=== PATIENT | female | born 1990 | race Caucasian/White ===

== ENCOUNTER 2016-09-26 15:19 | Emergency (ER) | payer MEDICAID ==
[~2016-09-26] VITALS: Ht 160 cm; Wt 57.6 kg
[~2016-09-26 15:19] MED LIST: BPR150TCR; CPR500T PO; HYDR-3062 PO; IBP600T1 PO; IBP800T PO; METR500T PO; NAPR-243 PO; PRD50T PO; PREN1TAB71 PO; RABE20TA PO; TRM50T PO; ZICAM
[2016-09-26 16:18] LABS: BILIRUBIN,URINE NEGATIVE (NEGATIVE); KETONES,URINE NEGATIVE (NEGATIVE); LEUKOCYTE ESTERASE ,URINE NEGATIVE (NEGATIVE); NITRITE,URINE NEGATIVE (NEGATIVE); PH,URINE 6 (5-9); PROTEIN,URINE NEGATIVE (NEGATIVE); UROBILINOGEN,URINE NORMAL (NORMAL)
[2016-09-26 16:26] LABS: WBC,URINE RARE /HPF
[2016-09-26 17:01] LABS: BASOPHILS % (AUTO) 1 % (0-10); EOSINOPHILS # (AUTO) 0.1 10^3/uL (0.0-0.3); EOSINOPHILS % (AUTO) 2 % (0-10); LYMPHOCYTES # (AUTO) 1.6 X 10^3 (1.0-4.0); LYMPHOCYTES % (AUTO) 30 % (12-44); MEAN CORPUSCULAR HEMOGLOBIN 31 PG (25-34); MEAN CORPUSCULAR HGB CONC 34 G/DL (32-36); MEAN CORPUSCULAR VOLUME 92 FL (80-99); MEAN PLATELET VOLUME 10.7 FL (7.4-10.4); MONOCYTES # (AUTO) 0.4 X 10^3 (0.0-1.0); MONOCYTES % (AUTO) 7 % (0-12); NEUTROPHILS # (AUTO) 3.3 X 10^3 (1.8-7.8); NEUTROPHILS % (AUTO) 61 % (42-75); PLATELET COUNT 159 10^3/uL (130-400); RED BLOOD COUNT 4.49 10^6/uL (4.35-5.85); RED CELL DISTRIBUTION WIDTH 11.9 % (10.0-14.5); WHITE BLOOD COUNT 5.3 10^3/uL (4.3-11.0)
[2016-09-26 17:13] LABS: ALANINE AMINOTRANSFERASE 15 U/L (0-55); ALBUMIN 4.2 G/DL (3.2-4.5); ANION GAP 8 MMOL/L (5-14); ASPARTATE AMINO TRANSFERASE 15 U/L (5-34); BILIRUBIN,TOTAL 0.4 MG/DL (0.1-1.0); BLOOD UREA NITROGEN 12 MG/DL (7-18); BUN/CREATININE RATIO 15; CALCIUM 9.6 MG/DL (8.5-10.1); CARBON DIOXIDE 26 MMOL/L (21-32); CHLORIDE 102 MMOL/L (98-107); GFR ESTIMATED > 60; GLUCOSE 70 MG/DL (70-105); MAGNESIUM 1.8 MG/DL (1.8-2.4); POTASSIUM 4.1 MMOL/L (3.6-5.0); SODIUM 136 MMOL/L (135-145); TOTAL PROTEIN 7.5 G/DL (6.4-8.2)
--- NOTE | 2016-09-26 17:22 | Diagnostic Imaging Report ---
INDICATION: Right-sided abdominal pain radiating to the back. Last bowel movement one week prior.. TECHNIQUE: Single supine view of the abdomen 05:21 p.m. CORRELATION STUDY: None. FINDINGS: There is vsya-ec-llpbbqsn severity fecal retention. No evidence for large fecal impaction. No findings to suggest bowel obstruction on single supine projection. No pathologic intra-abdominal calcifications. Incidental note made of a spina bifida occulta defect at the S1 level. IMPRESSION: 1. Vudb-fy-elyajfjj severity fecal retention. Dictated by: Dictated on workstation # [id number]
--- NOTE | 2016-09-26 17:28 | ED Abdominal Pain ---
General Chief Complaint: Abdominal/GI Problems Stated Complaint: ABD PAIN, CONSTIPATION Nursing Triage Note: PT STATES SHE HAS CONSTIPATION. SHE HAS HAD CONSTIPATION FOR APPROX. A WEEK. PT STATES HER BELLY IS TIGHT AND "FULL" FEELING. Sepsis Screen: No Definite Risk Source of Information: Patient Exam Limitations: No Limitations History of Present Illness Time Seen By Provider: 16:09 Initial Comments This 26-year-old woman presents to the emergency room with complaints of constipation and abdominal discomfort that has progressively worsened for a few weeks. Her last BM was about 6 days ago. She does have chronic intermittent problems with constipation but this is her most severe episode. She started MiraLAX 3 days ago and has been taking one or 2 doses a day. She also takes a "natural digestion" pill she purchases from [employer]. Normally this is effective in treating her constipation but has not worked this time. She has also tried suppositories in recent days without benefit. She reports a change in diet recently. She has been less disciplined about avoiding dairy products and fast food. She has some mild abdominal tenderness and cramping. She feels bloated. Last menstrual period was September 13 and was reportedly not her usual flow. She takes oral control as well. She has already been seen at [facility] for the same problem. She was started on antibiotics yesterday for urinary tract infection. Allergies and Home Medications Allergies Coded Allergies: No Known Drug Allergies (Verified , 02/03/09) Home Medications Rabeprazole Sodium 20 Mg Tablet.dr, 20 MG PO DAILY, #30 Prescribed by: AUREA WEINBERG on 10/12/13 0226 Review of Systems Constitutional: no symptoms reported EENTM: No Symptoms Reported Respiratory: No Symptoms Reported Cardiovascular: No Symptoms Reported Gastrointestinal: See HPI Genitourinary: See HPI Musculoskeletal: no symptoms reported Skin: no symptoms reported Psychiatric/Neurological: No Symptoms Reported Endocrine: No Symptoms Reported Past Nrhsxxb-Uurcxb-Veyiyb Hx Patient Social History Alcohol Use: Occasionally Uses Recreational Drug Use: No Smoking Status: Current Everyday Smoker Type Used: Cigarettes 2nd Hand Smoke Exposure: Yes Recent Foreign Travel: No Contact w/Someone Who Travel: No Recent Infectious Disease Expo: No Recent Hopitalizations: No Immunizations Up To Date Tetanus Booster (TDap): More than 5yrs PED Vaccines UTD: No Seasonal Allergies Seasonal Allergies: No Surgeries HX Surgeries: No Respiratory Hx Respiratory Disorders: No Cardiovascular Hx Cardiac Disorders: No Neurological Hx Neurological Disorders: No Reproductive System Hx Reproductive Disorders: No Sexually Transmitted Disease: No Genitourinary Hx Genitourinary Disorders: No Gastrointestinal Hx Gastrointestinal Disorders: Yes (gerd related.) Gastrointestinal Disorders: Gastroesophageal Reflux, Chronic Constipation Musculoskeletal Hx Musculoskeletal Disorders: No Endocrine Hx Endocrine Disorders: No HEENT HX ENT Disorders: No Cancer Hx Cancer: No Psychosocial Hx Psychiatric Problems: Yes Behavioral Health Disorders: Anxiety Integumentary HX Skin/Integumentary Disorder: No Blood Transfusions Hx Blood Disorders: No Family Medical History Significant Family History: Heart Disease, Cancer Family Medial History: Alcoholism 19 FATHER (paternal) Cancer 19 FATHER (breast cancer paternal grandmother) 19 MOTHER (maternal grandmother lung) Congestive heart failure 19 MOTHER (maternal grandomother) Family history: Cardiovascular disease 19 MOTHER (maternal grandfather) Family history: Diabetes mellitus 19 MOTHER (great grandfather type 2) Family history: Osteoporosis 19 MOTHER (grandmother ) Family history: Thyroid disorder 19 MOTHER (mother) Hearing loss 19 MOTHER (grandmother) History of - anemia 19 MOTHER (maternal grandmother) History of drug abuse 19 FATHER (dad ) Hypercholesterolemia 19 MOTHER (grandfather) Myocardial infarction 19 MOTHER (grandfather) Psychotic disorder 19 FATHER (father) Stroke 19 FATHER (great grandmother??) No Family History of: Abdominal aortic aneurysm Berrien's disease Aphasia Cancer of colon Cataract Chest pain Congenital heart disease Cystic fibrosis Dementia Dysphagia Family history: Allergy Family history: Alzheimer's disease Family history: Arthritis Family history: Asthma Family history: Breast disease Family history: Coronary thrombosis Family history: Gastrointestinal disease Family history: Glaucoma Family history: Hypertension Headache Heart disease Hereditary disease History of - disorder History of - respiratory disease Human immunodeficiency virus (HIV) seropositivity Infertile Kidney disease Malignant neoplasm of lung Parkinson's disease Prostate cancer Seizure disorder Tuberculosis Visual impairment Physical Exam Vital Signs VS - Last 72 Hours, by Label 09/26/16 09/26/16 15:26 17:45 Temp 99.2 99.2 Pulse 89 89 Resp 18 18 B/P (MAP) 105/71 Pulse Ox 99 99 O2 Delivery Room Air Capillary Refill : Less Than 3 Seconds General Appearance: WD/WN, no apparent distress HEENT: normal ENT inspection Respiratory: lungs clear, normal breath sounds, no respiratory distress, no accessory muscle use Cardiovascular: regular rate, rhythm, no edema, no murmur Gastrointestinal: normal bowel sounds, soft, distended (Mild), tenderness ( Minimal and generalized) Extremities: normal inspection, no pedal edema Back: normal inspection, no CVA tenderness 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, no motor/sensory deficits, alert, normal mood/affect, oriented x 3 Skin: normal color, warm/dry Progress/Results/Core Measures Results/Orders Lab Results Laboratory Tests Test 09/26/16 15:48 09/26/16 16:08 Range/Units White Blood Count 5.3 4.3-11.0 10^3/uL Red Blood Count 4.49 4.35-5.85 10^6/uL Hemoglobin 14.1 11.5-16.0 G/DL Hematocrit 41 35-52 % Mean Corpuscular Volume 92 80-99 FL Mean Corpuscular Hemoglobin 31 25-34 PG Mean Corpuscular Hemoglobin Concent 34 32-36 G/DL Red Cell Distribution Width 11.9 10.0-14.5 % Platelet Count 159 130-400 10^3/uL Mean Platelet Volume 10.7 H 7.4-10.4 FL Neutrophils (%) (Auto) 61 42-75 % Lymphocytes (%) (Auto) 30 12-44 % Monocytes (%) (Auto) 7 0-12 % Eosinophils (%) (Auto) 2 0-10 % Basophils (%) (Auto) 1 0-10 % Neutrophils # (Auto) 3.3 1.8-7.8 X 10^3 Lymphocytes # (Auto) 1.6 1.0-4.0 X 10^3 Monocytes # (Auto) 0.4 0.0-1.0 X 10^3 Eosinophils # (Auto) 0.1 0.0-0.3 10^3/uL Basophils # (Auto) 0.0 0.0-0.1 10^3/uL Sodium Level 136 135-145 MMOL/L Potassium Level 4.1 3.6-5.0 MMOL/L Chloride Level 102 98-107 MMOL/L Carbon Dioxide Level 26 21-32 MMOL/L Anion Gap 8 5-14 MMOL/L Blood Urea Nitrogen 12 7-18 MG/DL Creatinine 0.80 0.60-1.30 MG/DL Estimat Glomerular Filtration Rate > 60 BUN/Creatinine Ratio 15 Glucose Level 70 70-105 MG/DL Calcium Level 9.6 8.5-10.1 MG/DL Magnesium Level 1.8 1.8-2.4 MG/DL Total Bilirubin 0.4 0.1-1.0 MG/DL Aspartate Amino Transf (AST/SGOT) 15 5-34 U/L Alanine Aminotransferase (ALT/SGPT) 15 0-55 U/L Alkaline Phosphatase 55 40-136 U/L Total Protein 7.5 6.4-8.2 G/DL Albumin 4.2 3.2-4.5 G/DL TSH Reagan Testing 0.85 0.35-4.94 UIU/ML Urine Color YELLOW Urine Clarity SLIGHTLY CLOUDY Urine pH 6 5-9 Urine Specific [place] 1.010 L 1.016-1.022 Urine Protein NEGATIVE NEGATIVE Urine Glucose (UA) NEGATIVE NEGATIVE Urine Ketones NEGATIVE NEGATIVE Urine Nitrite NEGATIVE NEGATIVE Urine Bilirubin NEGATIVE NEGATIVE Urine Urobilinogen NORMAL NORMAL MG/DL Urine Leukocyte Esterase NEGATIVE NEGATIVE Urine RBC (Auto) NEGATIVE NEGATIVE Urine RBC NONE /HPF Urine WBC RARE /HPF Urine Squamous Epithelial Cells 10-25 H /HPF Urine Crystals NONE /LPF Urine Bacteria FEW H /HPF Urine Casts NONE /LPF Urine Mucus NEGATIVE /LPF Urine Culture Indicated NO My Orders Orders - JEFFREY REECE MD Urine Bedside (09/26/16 16:09) Ua Culture If Indicated (09/26/16 16:09) Cbc With Automated Diff (09/26/16 16:51) Comprehensive Metabolic Panel (09/26/16 16:51) Magnesium (09/26/16 16:51) Saline Lock/Iv-Start (09/26/16 16:51) Abdomen/Kub 1view (09/26/16 16:51) Thyroid Analyzer (09/26/16 17:01) Vital Signs/I&O Vital Sign - Last 12Hours 09/26/16 09/26/16 15:26 17:45 Temp 99.2 99.2 Pulse 89 89 Resp 18 18 B/P (MAP) 105/71 Pulse Ox 99 99 O2 Delivery Room Air Blood Pressure Mean: 82 Point of Care Testing Urine -Bedside: Negative Progress Note : Progress Note Labs and x-ray findings reviewed with patient. X-ray did suggest constipation. Labs were unremarkable. We discussed strategies for more aggressively treating her constipation. This included increasing her MiraLAX frequency and consuming only clear liquids until a good bowel movement is produced. I also suggested attempting fleets enemas as well. See discharge instructions Diagnostic Imaging Diagonstic Imaging: Xray Plain Films/CT/US/NM/MRI: abdomen Comments Abdominal x-ray viewed by me and report reviewed. See report below: NAME: GILBERTO GUILLERMO [facility] REC#: [id number] PT STATUS: DEP ER : 1990 PHYSICIAN: JEFFREY REECE MD ADMIT DATE: 09/26/16/ER Signed Date of Exam: 09/26/16 ABDOMEN/KUB 1VIEW INDICATION: Right-sided abdominal pain radiating to the back. Last bowel movement one week prior.. TECHNIQUE: Single supine view of the abdomen 05:21 p.m. CORRELATION STUDY: None. FINDINGS: There is mdjl-ju-sjnprpmn severity fecal retention. No evidence for large fecal impaction. No findings to suggest bowel obstruction on single supine projection. No pathologic intra-abdominal calcifications. Incidental note made of a spina bifida occulta defect at the S1 level. IMPRESSION: 1. Jrlq-ty-nosweety severity fecal retention. Dictated by: Dictated on workstation # [id number] Dict: 09/26/161711 Trans: 09/26/162226 Interpreted by: DORI NI DO Electronically signed by: DORI NI DO 09/26/162226 Departure Impression Impression: Primary Impression: Constipation Qualified Codes: K59.00 - Constipation, unspecified Disposition: 01 HOME, SELF-CARE Condition: Improved Departure-Patient Inst. Decision time for Depature: 17:25 Referrals: [facility] (PCP) Primary Care Physician Patient Instructions: Constipation, Adult (DC) Add. Discharge Instructions: Increase your MiraLAX dosing to 3 or 4 times daily until constipation resolves. Drink plenty of clear liquids. Observe a clear liquid diet until a good bowel movement is produced. Then gradually advance your diet as tolerated. Eat plenty of fruits, vegetables, and whole grains. Avoid excessive meats, dairy, fast foods, and processed foods as they may worsen constipation. Stay active daily. You may take Tylenol and/or ibuprofen for pain. It also may be necessary for you to use Fleets enemas zlfn-wdr-ffyxsac to help stimulate a bowel movement. You may use one enema daily for the next few days. Contact your doctor or return to the emergency room if symptoms worsen. All discharge instructions reviewed with patient and/or family. Voiced understanding. JEFFREY REECE MD September 26, 2016 17:28
[2016-09-26 17:45] VITALS: BP 105/71
== END 2016-09-26 17:44 | disposition home or self-care (01) ==
LOC: EDUNIT# 15:19 → ER 15:21
DX: K59.00 Constipation, unspecified (principal)
CPT/HCPCS: 36415; 74000; 80053; 81000; 83735; 84443; 84703; 85025

== ENCOUNTER → 2016-12-05 | Outpatient (CLI) | payer SELFPAY ==
--- NOTE | 2016-12-05 15:29 | Diagnostic Imaging Report ---
PROCEDURE: US OB SINGLE FETUS <14 WKS. TECHNIQUE: Multiple real-time grayscale images were obtained over the gravid uterus in various projections. INDICATION: Threatened miscarriage. Spotting. FINDINGS: There is embryo cardiac activity seen at a rate of 161 BPM. The crown/rump length is at 7 weeks and 4 days which would correlate with an GUILLERMINA of 07/20/2017. There is a small subchronic hemorrhage in the fundal area measuring 1.3 x 1.6 cm in size. The left ovary demonstrates color Doppler with normal overall size and suggestion of a 2 cm corpus luteum cyst. The right ovary is not seen, likely obscured by bowel gas. IMPRESSION: Live intrauterine . Tiny subchorionic hemorrhage. Dictated by: Dictated on workstation # [id number]
== END ==
LOC: RAD 14:37
PROVIDERS: ATTEND Family Medicine
DX: O20.8 Other hemorrhage in early pregnancy (principal); Z3A.01 Less than 8 weeks gestation of pregnancy
CPT/HCPCS: 76801

== ENCOUNTER → 2016-12-17 | Outpatient (CLI) | payer MEDICAID, OTHER ==
--- NOTE | 2016-12-17 15:17 | Diagnostic Imaging Report ---
INDICATION: Followup subchorionic hemorrhage. TECHNIQUE: Multiple real-time grayscale images were obtained over the gravid uterus. COMPARISON: 12/05/2016. FINDINGS: Single live intrauterine at 9 weeks 0 days by today's sonographic measurements. EDC by today's ultrasound is 07/22/2017. Appropriate interval growth. Small subchorionic hemorrhage is again noted measuring 1.8 x 0.6 cm. heart rate measures 169 beats per minute. No abnormal adnexal mass or fluid. [place]-rump length measures 2.3 cm. IMPRESSION: 1. Single live intrauterine at 9 weeks 0 days by today's sonographic measurements. 2. Small subchorionic hemorrhage again noted. Dictated by: Dictated on workstation # [id number]
== END ==
LOC: RAD 14:22
PROVIDERS: ATTEND Family Medicine
DX: O41.8X10 Other specified disorders of amniotic fluid and membranes, first trimester, not applicable or unspecified (principal); Z3A.09 9 weeks gestation of pregnancy
CPT/HCPCS: 76816

== ENCOUNTER → 2017-03-14 | Outpatient (CLI) | payer MEDICAID ==
--- NOTE | 2017-03-14 15:00 | Diagnostic Imaging Report ---
INDICATION: anatomy survey. TECHNIQUE: Multiple real-time grayscale images were obtained over the gravid uterus. COMPARISON: 12/17/2016. FINDINGS: Single live intrauterine with a heart rate of 135 beats per minute. The placenta is anteriorly located and there is no evidence of previa. anatomic survey was performed and the following structures were visualized and normal: Cerebral ventricles, cerebellum, cisterna magna, four-chamber heart, umbilical cord insertion, urinary bladder, profile, kidneys and stomach. The spine was suboptimally visualized. Biometrical measurements are as follows: Biparietal 5.0 cm, age 21 weeks 1 days. Head circumference 18.3 cm, age 20 weeks 5 days. Abdominal circumference 15.6 cm, age 20 weeks 6 days. Femur length 3.5 cm, age 21 weeks 2 days. Sonographic estimate age: 21 weeks 0 days. Sonographic estimated date of delivery: 07/25/16. Estimated Weight: 388 gm (+/- 57 gm). LMP percentile: 13%. heart rate: 133 beats per minute. number: 1 of 1. IMPRESSION: 1. Suboptimal visualization of the spine due to positioning. Consider short-term followup targeted anatomy survey of the spine to reassess this in the near future. 2. Otherwise, normal anatomy survey. Dictated by: Dictated on workstation # [id number]
== END ==
LOC: RAD 10:01
PROVIDERS: ATTEND Family Medicine
DX: Z36.87 Encounter for antenatal screening for uncertain dates (principal); Z3A.21 21 weeks gestation of pregnancy
CPT/HCPCS: 76805

== ENCOUNTER → 2017-04-11 | Outpatient (CLI) | payer MEDICAID ==
--- NOTE | 2017-04-11 20:14 | Diagnostic Imaging Report ---
INDICATION: Anatomical evaluation. COMPARISON: 03/14/2017. FINDINGS: Limited exam, adequately visualized the spine on follow-up and shown to be unremarkable. Cephalic positioning of a meza gestation noted with posterior placenta showing no abruption or previa and a normal volume amniotic fluid. IMPRESSION: Meza gestation in cephalic position, normal appearance of its spine. Dictated by: Dictated on workstation # [id number]
== END ==
LOC: RAD 14:02
PROVIDERS: ATTEND Family Medicine
DX: Z36.2 Encounter for other antenatal screening follow-up (principal); Z3A.00 Weeks of gestation of pregnancy not specified
CPT/HCPCS: 76816

== ENCOUNTER → 2017-06-14 | Outpatient (CLI) | payer MEDICAID ==
--- NOTE | 2017-06-14 16:23 | Diagnostic Imaging Report ---
INDICATION: Decreased movement, third trimester. FINDINGS: The akhtar gestation receives a normal 8 out of 8 biophysical profile score. The gestation is in breech position with a heart rate of 143 BPM. The amniotic fluid volume is normal with an index of 12.2. The placenta is fundal with no abruption or previa. IMPRESSION: The akhtar gestation in breech position receives a normal 8 out of 8 biophysical profile score. Dictated by: Dictated on workstation # [id number]
[2017-06-14 17:00] VITALS: BP 108/65
== END ==
LOC: RAD 15:37
PROVIDERS: ATTEND Family Medicine
DX: O36.8131 Decreased fetal movements, third trimester, fetus 1 (principal); Z3A.00 Weeks of gestation of pregnancy not specified
CPT/HCPCS: 76819

== ENCOUNTER 2017-06-24 14:22 | Outpatient (CLI) | payer MEDICAID ==
[~2017-06-24] VITALS: Ht 160 cm; Wt 76.8 kg
[2017-06-24 14:30] VITALS: BP 128/59
[2017-06-24] MEDS ORDERED: FAMO40TA72 PO (14:53)
[2017-06-24] MEDS ORDERED: PREN1TAB86 PO (14:53)
[2017-06-24] MEDS ORDERED: [UNRECOGNIZED DRUG - CODE] PO (14:53)
[2017-06-24 15:41] LABS: BILIRUBIN,URINE NEGATIVE (NEGATIVE); CLARITY,URINE CLEAR; COLOR,URINE YELLOW; GLUCOSE, URINE (UA) NEGATIVE (NEGATIVE); KETONES,URINE NEGATIVE (NEGATIVE); LEUKOCYTE ESTERASE ,URINE NEGATIVE (NEGATIVE); NITRITE,URINE NEGATIVE (NEGATIVE); PH,URINE 7 (5-9); PROTEIN,URINE NEGATIVE (NEGATIVE); UROBILINOGEN,URINE NORMAL (NORMAL)
[2017-06-24 16:00] VITALS: BP 115/76
[2017-06-24 16:06] LABS: BACTERIA,URINE NEGATIVE /HPF; SQUAMOUS EPITHELIAL CELL,UR TNTC /HPF
--- NOTE | 2017-06-24 16:07 | Diagnostic Imaging Report ---
INDICATION: Evaluate position. FINDINGS: A limited ultrasound was performed. The fetus is in a cephalic presentation. The heart rate is 150 BPM and regular. The sonographically estimated gestational age by the first sonogram is 36 weeks 2 days. IMPRESSION: The fetus is in a cephalic position. Dictated by: Dictated on workstation # [id number]
[2017-06-24] MEDS ORDERED: fentaNYL INJECTION 100 MCG/2 ML AMP ONE (16:13)
[2017-06-24] MEDS ORDERED: D5 LR IV SOLUTION 1,000 ML IV ONE ×2 (16:14→16:30)
[2017-06-24] MEDS ORDERED: fentaNYL INJECTION 100 MCG/2 ML AMP IVP PRN (16:30)
--- NOTE | 2017-06-25 12:38 | Physician Query-Final Dx ---
ANN MARIE DELEON 06/25/17 1238: Clinic Account Progress/Dx Physician Query: Please give diagnosis Date of Service Jun 24, 2017 at 14:22 EMILY KRAMER MD 06/25/17 1618: Clinic Account Progress/Dx DIAGNOSIS: Diagnosis contractions with no cervical change 36 weeks gestation ANN MARIE DELEON Jun 25, 2017 12:38 EMILY KRAMER MD Jun 25, 2017 16:18
== END 2017-06-24 18:45 | disposition home or self-care (01) ==
LOC: WSo 14:22 → LDRP 14:23 → WSo 18:45
PROVIDERS: ATTEND Family Medicine
DX: O60.03 Preterm labor without delivery, third trimester (principal); Z3A.36 36 weeks gestation of pregnancy
CPT/HCPCS: 76815; 81000; 96361; 96374; 99214

== ENCOUNTER 2017-07-03 05:32 | Outpatient (CLI) | payer MEDICAID ==
[2017-07-03] VITALS (8 sets, daily range): BP systolic 99–118; BP diastolic 56–77
[~2017-07-03] VITALS: Ht 160 cm; Wt 78.1 kg
[~2017-07-03 05:32] MED LIST changes: +FAMO40TA72 PO; +PREN1TAB86 PO; +[UNRECOGNIZED DRUG - CODE] PO
[2017-07-03] MEDS ORDERED: fentaNYL INJECTION 100 MCG/2 ML AMP IVP ONE (07:00)
[2017-07-03] MEDS ORDERED: LACTATED RINGERS 1,000 ML IV SCH (07:00)
[2017-07-03] MEDS ORDERED: D5 LR IV SOLUTION 1,000 ML IV SCH (08:45)
[2017-07-03] MEDS ORDERED: fentaNYL INJECTION 100 MCG/2 ML AMP IVP PRN (10:15)
--- NOTE | 2017-07-09 11:44 | Physician Query-Final Dx ---
CHRIS MELGAR 07/09/17 1144: Clinic Account Progress/Dx Physician Query: Please give diagnosis Date of Service Jul 03, 2017 at 05:32 EMILY KRAMER MD 07/12/17 1604: Clinic Account Progress/Dx DIAGNOSIS: Diagnosis Contractions with no cervical change 37 weeks gestation CHRIS MELGAR Jul 09, 2017 11:44 EMILY KRAMER MD Jul 12, 2017 16:04
== END 2017-07-03 11:50 | disposition home or self-care (01) ==
LOC: WSo 05:32 → LDRP 05:33 → WSo 11:50
PROVIDERS: ATTEND Family Medicine
DX: O47.1 False labor at or after 37 completed weeks of gestation (principal); Z3A.37 37 weeks gestation of pregnancy
CPT/HCPCS: 96361; 96374; 99214

== ENCOUNTER 2017-07-15 10:07 | Inpatient (IN) | payer MEDICAID ==
[~2017-07-15] VITALS: Ht 160 cm; Wt 78.1 kg
--- OUTSIDE RECORDS SUMMARY | 2017-07-15 10:20 | XMS REPORT | Clinical Summary ---
Author Author [facility] Address Unknown Phone Unavailable Care Team Providers Care Brazing Machine Feeder Name Role Phone PP Unavailable Allergies Not on File Current Medications Not on file Active Problems Not on file Social History Tobacco Use Types Packs/Day Years Used Date Never Assessed Sex Assigned at Date Recorded Not on file Plan of Treatment Health Maintenance Due Date Last Done Comments Varicella Vaccines (1 of 2001 2 - 2 Dose Adolescent Series) DTaP,Tdap,and Td Vaccines 2007 (1 - Tdap) CERVICAL CANCER SCREENING 2009 Influenza Vaccine (#1) 2017 Results Not on filefrom Last 3 Months
--- OUTSIDE RECORDS SUMMARY | 2017-07-15 10:20 | XMS REPORT ---
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 906816192 ALLERGIES No Known Allergies SOCIAL HISTORY Never Assessed PLAN OF CARE Activity Details Follow Up 2 Weeks with Damion if no improvement Reason: VITAL SIGNS Height 63 in 2016-09-25 Weight 127.5 lbs 2016-09-25 Temperature 99.2 degrees Fahrenheit 2016-09-25 Heart Rate 82 bpm 2016-09-25 Respiratory Rate 18 2016-09-25 BMI 22.58 kg/m2 2016-09-25 Blood pressure systolic 110 mmHg 2016-09-25 Blood pressure diastolic 76 mmHg 2016-09-25 MEDICATIONS Medication Instructions Dosage Frequency Start Date End Date Duration Status Macrobid 100 mg Orally every 12 hrs 1 capsule with food 12h September, September, 7 day(s) Active [place] 425 MG Active Ortho Tri-Cyclen (28) 0.18/0.215/0.25 mg-35 mcg (28) Orally Once a day take 1 tablet by oral route once daily 24h Nov, Active RESULTS Name Result Date Reference Range CULTURE, URINE 2016-09-25 Urine Culture, Routine Final report Result 1 No growth TEST, URINE (IN HOUSE) 2016-09-25 RESULTS negative Lot # [id number] Control + Exp date 11/2017 UA LONG DIP (IN HOUSE) 2016-09-25 Lot # [id number] Exp date 07/24/17 Clarity clear Color yellow Odor no GLU negative RUBEN neg KET neg SG 1.010 BLO negative pH 7.0 Protein neg URO 0.2 NIT neg JACINTA trace Lot # Exp date PROCEDURES Procedure Date Ordered Result Body Site URINALYSIS, AUTO, W/O SCOPE September 25, 2016 LAB NOT BILLED BY [facility] September 25, 2016 URINE TEST September 25, 2016 IMMUNIZATIONS No Known Immunizations MEDICAL (GENERAL) HISTORY Type Description Date Medical History hypertension during Medical History History of anxiety Hospitalization History child
--- OUTSIDE RECORDS SUMMARY | 2017-07-15 10:22 | XMS REPORT | Continuity of Care Document ---
Author Author [facility] Organization [facility] Address Unknown Phone Unavailable Allergies Active Description Code Type Severity Reaction Onset Reported/Identified Relationship to Patient Clinical Status Yes No Known Drug Allergies [id number] Drug Allergy Unknown N/A 02/03/2009 Medications There is no data. Problems Date Dx Coded Attending Type Code Diagnosis Diagnosed By 07/06/2008 JOEL COOPER, ALFONSO V22.0 PC NORMAL FIRST 07/06/2008 V22.0 PC NORMAL FIRST 07/06/2008 V22.0 PC NORMAL FIRST 07/06/2008 JESSY PINO ROSI K V22.0 PC NORMAL FIRST 07/06/2008 ROSI APRN, RYAN A V22.0 PC NORMAL FIRST 07/06/2008 ROSI APRN, RYAN A V22.0 PC NORMAL FIRST 07/06/2008 ROSI APRN, RYAN A V22.0 PC NORMAL FIRST 07/06/2008 JIMÉNEZ DO, ROSI K V22.0 PC NORMAL FIRST 07/06/2008 ROSI APRN, RYAN A V22.0 PC NORMAL FIRST 07/06/2008 JIMÉNEZ DO, ROSI K V22.0 PC NORMAL FIRST 07/06/2008 JIMÉNEZ DO, ROSI K V22.0 PC NORMAL FIRST 07/06/2008 JIMÉNEZ DO, ROSI K V22.0 PC NORMAL FIRST 07/06/2008 ROSI APRN, RYAN A V22.0 PC NORMAL FIRST 07/06/2008 JIMÉNEZ DO, ROSI K V22.0 PC NORMAL FIRST 07/06/2008 JIMÉNEZ DO, ROSI K V22.0 PC NORMAL FIRST 07/06/2008 JIMÉNEZ DO, ROSI K V22.0 PC NORMAL FIRST 07/06/2008 JIMÉNEZ DO, ROSI K V22.0 PC NORMAL FIRST 07/06/2008 ROSIConchita BUNN RYAN A V22.0 PC NORMAL FIRST 07/06/2008 RYAN ARANDA APRN V22.0 PC NORMAL FIRST 08/17/2008 ALFONSO MALDONADO MD V74.5 STD SCREEN 08/17/2008 V74.5 STD SCREEN 08/17/2008 V74.5 STD SCREEN 08/17/2008 JIMÉNEZ DO, ROSI K V74.5 STD SCREEN 08/17/2008 ROSI BUNN, RYAN A V74.5 STD SCREEN 08/17/2008 ROSI BUNN, RYAN A V74.5 STD SCREEN 08/17/2008 ROSI BUNN, RYAN A V74.5 STD SCREEN 08/17/2008 JIMÉNEZ DO, ROSI K V74.5 STD SCREEN 08/17/2008 ROSI BUNN, RYAN A V74.5 STD SCREEN 08/17/2008 JIMÉNEZ DO, ROSI K V74.5 STD SCREEN 08/17/2008 JIMÉNEZ DO, ROSI K V74.5 STD SCREEN 08/17/2008 JIMÉNEZ DO, ROSI K V74.5 STD SCREEN 08/17/2008 ROSI BUNN, RYAN A V74.5 STD SCREEN 08/17/2008 JIMÉNEZ DO, ROSI K V74.5 STD SCREEN 08/17/2008 JIMÉNEZ DO, ROSI K V74.5 STD SCREEN 08/17/2008 JIMÉNEZ DO, ROSI K V74.5 STD SCREEN 08/17/2008 JIMÉNEZ DO, ROSI K V74.5 STD SCREEN 08/17/2008 ROSI BUNN, RYAN A V74.5 STD SCREEN 08/17/2008 ROSI BUNN, RYAN A V74.5 STD SCREEN 12/01/2008 ALFONSO MALDONADO MD 616.10 VAGINITIS VULVOVAGINITIS UNSPECIFIED 12/01/2008 616.10 VAGINITIS VULVOVAGINITIS UNSPECIFIED 12/01/2008 616.10 VAGINITIS VULVOVAGINITIS UNSPECIFIED 12/01/2008 JIMÉNEZ DO, ROSI K 616.10 VAGINITIS VULVOVAGINITIS UNSPECIFIED 12/01/2008 RYAN ARANDA APRN A 616.10 VAGINITIS VULVOVAGINITIS UNSPECIFIED 12/01/2008 RYAN ARANDA APRN A 616.10 VAGINITIS VULVOVAGINITIS UNSPECIFIED 12/01/2008 RYAN ARANDA APRN A 616.10 VAGINITIS VULVOVAGINITIS UNSPECIFIED 12/01/2008 JIMÉNEZ DO, ROSI K 616.10 VAGINITIS VULVOVAGINITIS UNSPECIFIED 12/01/2008 RYAN ARANDA APRN A 616.10 VAGINITIS VULVOVAGINITIS UNSPECIFIED 12/01/2008 JIMÉNEZ DO, ROSI K 616.10 VAGINITIS VULVOVAGINITIS UNSPECIFIED 12/01/2008 JIMÉNEZ DO, ROSI K 616.10 VAGINITIS VULVOVAGINITIS UNSPECIFIED 12/01/2008 JIMÉNEZ DO, ROSI K 616.10 VAGINITIS VULVOVAGINITIS UNSPECIFIED 12/01/2008 RYAN ARANDA APRN A 616.10 VAGINITIS VULVOVAGINITIS UNSPECIFIED 12/01/2008 JIMÉNEZ DO, ROSI K 616.10 VAGINITIS VULVOVAGINITIS UNSPECIFIED 12/01/2008 JIMÉNEZ DO, ROSI K 616.10 VAGINITIS VULVOVAGINITIS UNSPECIFIED 12/01/2008 JIMÉNEZ DO, ROSI K 616.10 VAGINITIS VULVOVAGINITIS UNSPECIFIED 12/01/2008 JIMÉNEZ DO, ROSI K 616.10 VAGINITIS VULVOVAGINITIS UNSPECIFIED 12/01/2008 RYAN ARANDA APRN A 616.10 VAGINITIS VULVOVAGINITIS UNSPECIFIED 12/01/2008 RYAN ARANDA APRN A 616.10 VAGINITIS VULVOVAGINITIS UNSPECIFIED 02/02/2009 JOEL COOPER, ALFONSO 642.90 UNSPECIFIED HYPERTENSION COMPLICATING CHILDBIRTH OR THE PUERPERIUM UNSPECIFIED TO EPISODE OF CARE 02/02/2009 642.90 UNSPECIFIED HYPERTENSION COMPLICATING CHILDBIRTH OR THE PUERPERIUM UNSPECIFIED TO EPISODE OF CARE 02/02/2009 642.90 UNSPECIFIED HYPERTENSION COMPLICATING CHILDBIRTH OR THE PUERPERIUM UNSPECIFIED TO EPISODE OF CARE 02/02/2009 ROSI JIMÉNEZ DO 642.90 UNSPECIFIED HYPERTENSION COMPLICATING CHILDBIRTH OR THE PUERPERIUM UNSPECIFIED TO EPISODE OF CARE 02/02/2009 RYAN ARANDA APRN A 642.90 UNSPECIFIED HYPERTENSION COMPLICATING CHILDBIRTH OR THE PUERPERIUM UNSPECIFIED TO EPISODE OF CARE 02/02/2009 RYAN ARANDA APRN A 642.90 UNSPECIFIED HYPERTENSION COMPLICATING CHILDBIRTH OR THE PUERPERIUM UNSPECIFIED TO EPISODE OF CARE 02/02/2009 RYAN ARANDA APRN A 642.90 UNSPECIFIED HYPERTENSION COMPLICATING CHILDBIRTH OR THE PUERPERIUM UNSPECIFIED TO EPISODE OF CARE 02/02/2009 ROSI JIMÉNEZ DO 642.90 UNSPECIFIED HYPERTENSION COMPLICATING CHILDBIRTH OR THE PUERPERIUM UNSPECIFIED TO EPISODE OF CARE 02/02/2009 RYAN ARANDA APRN A 642.90 UNSPECIFIED HYPERTENSION COMPLICATING CHILDBIRTH OR THE PUERPERIUM UNSPECIFIED TO EPISODE OF CARE 02/02/2009 ROSI JIMÉNEZ DO 642.90 UNSPECIFIED HYPERTENSION COMPLICATING CHILDBIRTH OR THE PUERPERIUM UNSPECIFIED TO EPISODE OF CARE 02/02/2009 MADISON JIMÉNEZ DOA K 642.90 UNSPECIFIED HYPERTENSION COMPLICATING CHILDBIRTH OR THE PUERPERIUM UNSPECIFIED TO EPISODE OF CARE 02/02/2009 MADISON JIMÉNEZ DOA K 642.90 UNSPECIFIED HYPERTENSION COMPLICATING CHILDBIRTH OR THE PUERPERIUM UNSPECIFIED TO EPISODE OF CARE 02/02/2009 RYAN ARANDA APRN A 642.90 UNSPECIFIED HYPERTENSION COMPLICATING CHILDBIRTH OR THE PUERPERIUM UNSPECIFIED TO EPISODE OF CARE 02/02/2009 MDAISON JIMÉNEZ DOA K 642.90 UNSPECIFIED HYPERTENSION COMPLICATING CHILDBIRTH OR THE PUERPERIUM UNSPECIFIED TO EPISODE OF CARE 02/02/2009 ROSI JIMÉNEZ DO K 642.90 UNSPECIFIED HYPERTENSION COMPLICATING CHILDBIRTH OR THE PUERPERIUM UNSPECIFIED TO EPISODE OF CARE 02/02/2009 MADISON JIMÉNEZ DOA K 642.90 UNSPECIFIED HYPERTENSION COMPLICATING CHILDBIRTH OR THE PUERPERIUM UNSPECIFIED TO EPISODE OF CARE 02/02/2009 MADISON JIMÉNEZ DOA K 642.90 UNSPECIFIED HYPERTENSION COMPLICATING CHILDBIRTH OR THE PUERPERIUM UNSPECIFIED TO EPISODE OF CARE 02/02/2009 RYAN ARANDA APRN A 642.90 UNSPECIFIED HYPERTENSION COMPLICATING CHILDBIRTH OR THE PUERPERIUM UNSPECIFIED TO EPISODE OF CARE 02/02/2009 RYAN ARANDA APRN A 642.90 UNSPECIFIED HYPERTENSION COMPLICATING CHILDBIRTH OR THE PUERPERIUM UNSPECIFIED TO EPISODE OF CARE 03/28/2009 AFLONSO MALDONADO MD V24.2 visit for: exam 03/28/2009 V24.2 visit for: exam 03/28/2009 V24.2 visit for: exam 03/28/2009 ROSI JIMÉNEZ DO V24.2 visit for: exam 03/28/2009 RYAN ARANDA APRN A V24.2 visit for: exam 03/28/2009 RYAN ARANDA APRN A V24.2 visit for: exam 03/28/2009 RYAN ARANDA APRN A V24.2 VISIT FOR: EXAM 03/28/2009 ROSI JIMÉNEZ DO V24.2 VISIT FOR: EXAM 03/28/2009 RYAN ARANDA APRN A V24.2 VISIT FOR: EXAM 03/28/2009 ROSI JIMÉNEZ DO V24.2 VISIT FOR: EXAM 03/28/2009 ROSI JIMÉNEZ DO V24.2 VISIT FOR: EXAM 03/28/2009 MADISON JIMÉNEZ DOA K V24.2 VISIT FOR: EXAM 03/28/2009 RYAN ARANDA APRN A V24.2 VISIT FOR: EXAM 03/28/2009 ROSI JIMÉNEZ DO K V24.2 VISIT FOR: EXAM 03/28/2009 MADISON JIMÉNEZ DOA K V24.2 VISIT FOR: EXAM 03/28/2009 MADISON JIMÉNEZ DOA K V24.2 VISIT FOR: EXAM 03/28/2009 MADISON JIMÉNEZ DOA Omid V24.2 VISIT FOR: EXAM 03/28/2009 RYAN ARANDA APRN A V24.2 VISIT FOR: EXAM 03/28/2009 RYAN ARANDA APRN A V24.2 VISIT FOR: EXAM 06/04/2009 ALFONSO MALDONADO MD 465.9 ACUTE UPPER RESPIRATORY INFECTIONS OF UNSPECIFIED SITE 06/04/2009 465.9 ACUTE UPPER RESPIRATORY INFECTIONS OF UNSPECIFIED SITE 06/04/2009 465.9 ACUTE UPPER RESPIRATORY INFECTIONS OF UNSPECIFIED SITE 06/04/2009 ROSI JIMÉNEZ DO 465.9 ACUTE UPPER RESPIRATORY INFECTIONS OF UNSPECIFIED SITE 06/04/2009 ROSI COAT ROOM ATTENDANT, RYAN A 465.9 ACUTE UPPER RESPIRATORY INFECTIONS OF UNSPECIFIED SITE 06/04/2009 ROSI COAT ROOM ATTENDANT, RYAN A 465.9 ACUTE UPPER RESPIRATORY INFECTIONS OF UNSPECIFIED SITE 06/04/2009 ROSI COAT ROOM ATTENDANT, RYAN A 465.9 ACUTE UPPER RESPIRATORY INFECTIONS OF UNSPECIFIED SITE 06/04/2009 JIMÉNEZ DO, ROSI K 465.9 ACUTE UPPER RESPIRATORY INFECTIONS OF UNSPECIFIED SITE 06/04/2009 ROSIConchita BUNN RYAN A 465.9 ACUTE UPPER RESPIRATORY INFECTIONS OF UNSPECIFIED SITE 06/04/2009 JIMÉNEZ DO, ROSI K 465.9 ACUTE UPPER RESPIRATORY INFECTIONS OF UNSPECIFIED SITE 06/04/2009 JIMÉNEZ DO, ROSI K 465.9 ACUTE UPPER RESPIRATORY INFECTIONS OF UNSPECIFIED SITE 06/04/2009 JIMÉNEZ DO, ROSI K 465.9 ACUTE UPPER RESPIRATORY INFECTIONS OF UNSPECIFIED SITE 06/04/2009 ROSI BUNN RYAN A 465.9 ACUTE UPPER RESPIRATORY INFECTIONS OF UNSPECIFIED SITE 06/04/2009 JIMÉNEZ DO, ROSI K 465.9 ACUTE UPPER RESPIRATORY INFECTIONS OF UNSPECIFIED SITE 06/04/2009 JIMÉNEZ DO, ROSI K 465.9 ACUTE UPPER RESPIRATORY INFECTIONS OF UNSPECIFIED SITE 06/04/2009 JIMÉNEZ DO, ROSI K 465.9 ACUTE UPPER RESPIRATORY INFECTIONS OF UNSPECIFIED SITE 06/04/2009 JIMÉNEZ DO, ROSI K 465.9 ACUTE UPPER RESPIRATORY INFECTIONS OF UNSPECIFIED SITE 06/04/2009 HUMA ARANDA APRNIDI A 465.9 ACUTE UPPER RESPIRATORY INFECTIONS OF UNSPECIFIED SITE 06/04/2009 ROSI BUNN RYAN A 465.9 ACUTE UPPER RESPIRATORY INFECTIONS OF UNSPECIFIED SITE 12/22/2009 ALFONSO MALDONADO MD 789.00 ABDOMINAL PAIN UNSPECIFIED SITE 12/22/2009 789.00 ABDOMINAL PAIN UNSPECIFIED SITE 12/22/2009 789.00 ABDOMINAL PAIN UNSPECIFIED SITE 12/22/2009 JIMÉNEZ DO, ROSI K 789.00 ABDOMINAL PAIN UNSPECIFIED SITE 12/22/2009 ROSI BUNN RYAN A 789.00 ABDOMINAL PAIN UNSPECIFIED SITE 12/22/2009 HUMA ARANDA APRNIDI A 789.00 ABDOMINAL PAIN UNSPECIFIED SITE 12/22/2009 HUMA ARANDA APRNIDI A 789.00 ABDOMINAL PAIN UNSPECIFIED SITE 12/22/2009 JIMÉNEZ DO, ROSI K 789.00 ABDOMINAL PAIN UNSPECIFIED SITE 12/22/2009 ROSI APRN, RYAN A 789.00 ABDOMINAL PAIN UNSPECIFIED SITE 12/22/2009 JIMÉNEZ DO, ROSI K 789.00 ABDOMINAL PAIN UNSPECIFIED SITE 12/22/2009 JIMÉNEZ DO, ROSI K 789.00 ABDOMINAL PAIN UNSPECIFIED SITE 12/22/2009 JIMÉNEZ DO, ROSI K 789.00 ABDOMINAL PAIN UNSPECIFIED SITE 12/22/2009 ROSIConchita BUNN RYAN A 789.00 ABDOMINAL PAIN UNSPECIFIED SITE 12/22/2009 JIMÉNEZ DO, ROSI K 789.00 ABDOMINAL PAIN UNSPECIFIED SITE 12/22/2009 JIMÉNEZ DO, ROSI K 789.00 ABDOMINAL PAIN UNSPECIFIED SITE 12/22/2009 JIMÉNEZ DO, ROSI K 789.00 ABDOMINAL PAIN UNSPECIFIED SITE 12/22/2009 JIMÉNEZ DO, ROSI K 789.00 ABDOMINAL PAIN UNSPECIFIED SITE 12/22/2009 ROSIHUMA Arango APRNIDI A 789.00 ABDOMINAL PAIN UNSPECIFIED SITE 12/22/2009 ROSIHUMA Arango APRNIDI A 789.00 ABDOMINAL PAIN UNSPECIFIED SITE 01/11/2010 JOEL COOPER, ALFONSO 616.10 VAGINITIS VULVOVAGINITIS UNSPECIFIED 01/11/2010 616.10 VAGINITIS VULVOVAGINITIS UNSPECIFIED 01/11/2010 616.10 VAGINITIS VULVOVAGINITIS UNSPECIFIED 01/11/2010 JIMÉNEZ DO, ROSI K 616.10 VAGINITIS VULVOVAGINITIS UNSPECIFIED 01/11/2010 ROSI BUNN, RYAN A 616.10 VAGINITIS VULVOVAGINITIS UNSPECIFIED 01/11/2010 ROSIConchita BUNN RYAN A 616.10 VAGINITIS VULVOVAGINITIS UNSPECIFIED 01/11/2010 ROSI APRN, RYAN A 616.10 VAGINITIS VULVOVAGINITIS UNSPECIFIED 01/11/2010 JIMÉNEZ DO, ROSI K 616.10 VAGINITIS VULVOVAGINITIS UNSPECIFIED 01/11/2010 ROSI BUNN RYAN A 616.10 VAGINITIS VULVOVAGINITIS UNSPECIFIED 01/11/2010 JIMÉNEZ DO, ROSI K 616.10 VAGINITIS VULVOVAGINITIS UNSPECIFIED 01/11/2010 JIMÉNEZ DO, ROSI K 616.10 VAGINITIS VULVOVAGINITIS UNSPECIFIED 01/11/2010 JIMÉNEZ DO, ROSI K 616.10 VAGINITIS VULVOVAGINITIS UNSPECIFIED 01/11/2010 ROSI COAT ROOM ATTENDANT RYAN A 616.10 VAGINITIS VULVOVAGINITIS UNSPECIFIED 01/11/2010 JIMÉNEZ DO, ROSI K 616.10 VAGINITIS VULVOVAGINITIS UNSPECIFIED 01/11/2010 JIMÉNEZ DO, ROSI K 616.10 VAGINITIS VULVOVAGINITIS UNSPECIFIED 01/11/2010 JIMÉNEZ DO, ROSI K 616.10 VAGINITIS VULVOVAGINITIS UNSPECIFIED 01/11/2010 JIMÉNEZ DO, ROSI K 616.10 VAGINITIS VULVOVAGINITIS UNSPECIFIED 01/11/2010 ROSIConchita BUNN RYAN A 616.10 VAGINITIS VULVOVAGINITIS UNSPECIFIED 01/11/2010 ROSIConchita BUNN RYAN A 616.10 VAGINITIS VULVOVAGINITIS UNSPECIFIED 08/21/2010 ALFONSO MALDONADO MD 311 DEPRESSIVE DISORDER NOT ELSEWHERE CLASSIFIED 08/21/2010 311 DEPRESSIVE DISORDER NOT ELSEWHERE CLASSIFIED 08/21/2010 311 DEPRESSIVE DISORDER NOT ELSEWHERE CLASSIFIED 08/21/2010 JIMÉNEZ DO, ROSI K 311 DEPRESSIVE DISORDER NOT ELSEWHERE CLASSIFIED 08/21/2010 ROSIJULIETTE BUNN RYAN A 311 DEPRESSIVE DISORDER NOT ELSEWHERE CLASSIFIED 08/21/2010 ROSIConchita BUNN RYAN A 311 DEPRESSIVE DISORDER NOT ELSEWHERE CLASSIFIED 08/21/2010 ROSI BUNN RYAN A 311 DEPRESSIVE DISORDER NOT ELSEWHERE CLASSIFIED 08/21/2010 JIMÉNEZ DO ROSI K 311 DEPRESSIVE DISORDER NOT ELSEWHERE CLASSIFIED 08/21/2010 ROSI BUNN RYAN A 311 DEPRESSIVE DISORDER NOT ELSEWHERE CLASSIFIED 08/21/2010 JIMÉNEZ DO, ROSI K 311 DEPRESSIVE DISORDER NOT ELSEWHERE CLASSIFIED 08/21/2010 JIMÉNEZ DO, ROSI K 311 DEPRESSIVE DISORDER NOT ELSEWHERE CLASSIFIED 08/21/2010 JIMÉNEZ DO, ROSI K 311 DEPRESSIVE DISORDER NOT ELSEWHERE CLASSIFIED 08/21/2010 ROSI RANDOLPHN RYAN A 311 DEPRESSIVE DISORDER NOT ELSEWHERE CLASSIFIED 08/21/2010 JIMÉNEZ DO, ROSI K 311 DEPRESSIVE DISORDER NOT ELSEWHERE CLASSIFIED 08/21/2010 JIMÉNEZ DO, ROSI K 311 DEPRESSIVE DISORDER NOT ELSEWHERE CLASSIFIED 08/21/2010 JIMÉNEZ DO, ROSI K 311 DEPRESSIVE DISORDER NOT ELSEWHERE CLASSIFIED 08/21/2010 JIMÉNEZ DO, ROSI K 311 DEPRESSIVE DISORDER NOT ELSEWHERE CLASSIFIED 08/21/2010 HUMA ARANDA APRNIDI A 311 DEPRESSIVE DISORDER NOT ELSEWHERE CLASSIFIED 08/21/2010 RYAN ARANDA APRN A 311 DEPRESSIVE DISORDER NOT ELSEWHERE CLASSIFIED 09/17/2011 JOEL COOPER, ALFONSO V70.5 PREEMPLOYMENT/PRESCHOOL EXAM 09/17/2011 V70.5 PREEMPLOYMENT/ PRESCHOOL EXAM 09/17/2011 V70.5 PREEMPLOYMENT/ PRESCHOOL EXAM 09/17/2011 ROSI JIMÉNEZ DO K V70.5 PREEMPLOYMENT/PRESCHOOL EXAM 09/17/2011 ROSI BUNN RYAN A V70.5 PREEMPLOYMENT/PRESCHOOL EXAM 09/17/2011 ROSI BUNN RYAN A V70.5 PREEMPLOYMENT/PRESCHOOL EXAM 09/17/2011 HUMA ARANDA APRNIDI A V70.5 PREEMPLOYMENT/PRESCHOOL EXAM 09/17/2011 JIMÉNEZ DO ROSI K V70.5 PREEMPLOYMENT/PRESCHOOL EXAM 09/17/2011 ROSI BUNN RYAN A V70.5 PREEMPLOYMENT/PRESCHOOL EXAM 09/17/2011 JIMÉNEZ DO ROSI K V70.5 PREEMPLOYMENT/PRESCHOOL EXAM 09/17/2011 JIMÉNEZ DO ROSI K V70.5 PREEMPLOYMENT/PRESCHOOL EXAM 09/17/2011 JIMÉNEZ DO ROSI K V70.5 PREEMPLOYMENT/PRESCHOOL EXAM 09/17/2011 ROSI BUNN RYAN A V70.5 PREEMPLOYMENT/PRESCHOOL EXAM 09/17/2011 JIMÉNEZ DO ROSI K V70.5 PREEMPLOYMENT/PRESCHOOL EXAM 09/17/2011 JIMÉNEZ DO ROSI K V70.5 PREEMPLOYMENT/PRESCHOOL EXAM 09/17/2011 JIMÉNEZ DO ROSI K V70.5 PREEMPLOYMENT/PRESCHOOL EXAM 09/17/2011 JIMÉNEZ DO ROSI K V70.5 PREEMPLOYMENT/PRESCHOOL EXAM 09/17/2011 HUMA ARANDA APRNIDI A V70.5 PREEMPLOYMENT/PRESCHOOL EXAM 09/17/2011 RYAN ARANDA APRN A V70.5 PREEMPLOYMENT/PRESCHOOL EXAM 04/23/2012 ALFONSO MALDONADO MD V74.5 visit for: screening exam bact/spirochetal STD 04/23/2012 V74.5 visit for: screening exam bact/spirochetal STD 04/23/2012 V74.5 visit for: screening exam bact/spirochetal STD 04/23/2012 ROSI JIMÉNEZ DO V74.5 visit for: screening exam bact/spirochetal STD 04/23/2012 ROSI HUMA BUNNIDI A V74.5 visit for: screening exam bact/spirochetal STD 04/23/2012 ROSI HUMA BUNNIDI A V74.5 visit for: screening exam bact/spirochetal STD 04/23/2012 ROSIRYAN Arango APRN A V74.5 visit for: screening exam bact/spirochetal STD 04/23/2012 ROSI JIMÉNEZ DO V74.5 VISIT FOR: SCREENING EXAM BACT/SPIROCHETAL STD 04/23/2012 RYAN ARANDA APRN A V74.5 VISIT FOR: SCREENING EXAM BACT/SPIROCHETAL STD 04/23/2012 ROSI JIMÉNEZ DO V74.5 VISIT FOR: SCREENING EXAM BACT/SPIROCHETAL STD 04/23/2012 ROSI JIMÉNEZ DO V74.5 VISIT FOR: SCREENING EXAM BACT/SPIROCHETAL STD 04/23/2012 ROSI JIMÉNEZ DO V74.5 VISIT FOR: SCREENING EXAM BACT/SPIROCHETAL STD 04/23/2012 RYAN ARANDA APRN A V74.5 VISIT FOR: SCREENING EXAM BACT/SPIROCHETAL STD 04/23/2012 ROSI JIMÉNEZ DO V74.5 VISIT FOR: SCREENING EXAM BACT/SPIROCHETAL STD 04/23/2012 ROSI JIMÉNEZ DO V74.5 VISIT FOR: SCREENING EXAM BACT/SPIROCHETAL STD 04/23/2012 ROSI JIMÉNEZ DO V74.5 VISIT FOR: SCREENING EXAM BACT/SPIROCHETAL STD 04/23/2012 ROSI JIMÉNEZ DO V74.5 VISIT FOR: SCREENING EXAM BACT/SPIROCHETAL STD 04/23/2012 RYAN ARANDA APRN A V74.5 VISIT FOR: SCREENING EXAM BACT/SPIROCHETAL STD 04/23/2012 ROSIHUMA Arango APRNIDI A V74.5 VISIT FOR: SCREENING EXAM BACT/SPIROCHETAL STD 08/01/2012 623.5 LEUKORRHEA NOT SPECIFIED INFECTIVE 08/01/2012 V25.01 CONTRACEPTION - ORAL CONTRACEPTION 08/01/2012 V25.12 IUD REMOVAL 08/01/2012 623.5 LEUKORRHEA NOT SPECIFIED INFECTIVE 08/01/2012 V25.01 CONTRACEPTION - ORAL CONTRACEPTION 08/01/2012 V25.12 IUD REMOVAL 08/01/2012 ROSI JIMÉNEZ DO K 623.5 LEUKORRHEA NOT SPECIFIED INFECTIVE 08/01/2012 ROSI JIMÉNEZ DO K V25.01 CONTRACEPTION - ORAL CONTRACEPTION 08/01/2012 JESSY PINO ROSI K V25.12 IUD REMOVAL 08/01/2012 ROSI COAT ROOM ATTENDANT, RYAN A 623.5 LEUKORRHEA NOT SPECIFIED INFECTIVE 08/01/2012 ROSI COAT ROOM ATTENDANT, RYAN A V25.01 CONTRACEPTION - ORAL CONTRACEPTION 08/01/2012 ROSI COAT ROOM ATTENDANT, RYAN A V25.12 IUD REMOVAL 08/01/2012 ROSI COAT ROOM ATTENDANT, RYAN A 623.5 LEUKORRHEA NOT SPECIFIED INFECTIVE 08/01/2012 ROSI COAT ROOM ATTENDANT, RYAN A V25.01 CONTRACEPTION - ORAL CONTRACEPTION 08/01/2012 ROSI COAT ROOM ATTENDANT, RYAN A V25.12 IUD REMOVAL 08/01/2012 ROSI COAT ROOM ATTENDANT, RYAN A 623.5 LEUKORRHEA NOT SPECIFIED INFECTIVE 08/01/2012 ROSI COAT ROOM ATTENDANT, RYAN A V25.01 CONTRACEPTION - ORAL CONTRACEPTION 08/01/2012 ROSI COAT ROOM ATTENDANT, RYAN A V25.12 IUD REMOVAL 08/01/2012 ROSI JIMÉNEZ DO K 623.5 LEUKORRHEA NOT SPECIFIED INFECTIVE 08/01/2012 ROSI JIMÉNEZ DO K V25.01 CONTRACEPTION - ORAL CONTRACEPTION 08/01/2012 MADISON JIMÉNEZ DOA K V25.12 IUD REMOVAL 08/01/2012 ROSI COAT ROOM ATTENDANT, RYAN A 623.5 LEUKORRHEA NOT SPECIFIED INFECTIVE 08/01/2012 ROSI COAT ROOM ATTENDANT, RYAN A V25.01 CONTRACEPTION - ORAL CONTRACEPTION 08/01/2012 ROSI COAT ROOM ATTENDANT, RYAN A V25.12 IUD REMOVAL 08/01/2012 ROSI JIMÉNEZ DO K 623.5 LEUKORRHEA NOT SPECIFIED INFECTIVE 08/01/2012 ROSI JIMÉNEZ DO K V25.01 CONTRACEPTION - ORAL CONTRACEPTION 08/01/2012 JIMÉNEZ DO, ROSI K V25.12 IUD REMOVAL 08/01/2012 JIMÉNEZ DO, ROSI K 623.5 LEUKORRHEA NOT SPECIFIED INFECTIVE 08/01/2012 JIMÉNEZ DO, ROSI K V25.01 CONTRACEPTION - ORAL CONTRACEPTION 08/01/2012 JIMÉNEZ DO, ROSI K V25.12 IUD REMOVAL 08/01/2012 JIMÉNEZ DO, ROSI K 623.5 LEUKORRHEA NOT SPECIFIED INFECTIVE 08/01/2012 JIMÉNEZ DO, ROSI K V25.01 CONTRACEPTION - ORAL CONTRACEPTION 08/01/2012 JIMÉNEZ DO, ROSI K V25.12 IUD REMOVAL 08/01/2012 ROSI COAT ROOM ATTENDANT, RYAN A 623.5 LEUKORRHEA NOT SPECIFIED INFECTIVE 08/01/2012 ROSI COAT ROOM ATTENDANT, RYAN A V25.01 CONTRACEPTION - ORAL CONTRACEPTION 08/01/2012 ROSI COAT ROOM ATTENDANT, RYAN A V25.12 IUD REMOVAL 08/01/2012 JIMÉNEZ DO, ROSI K 623.5 LEUKORRHEA NOT SPECIFIED INFECTIVE 08/01/2012 JIMÉNEZ DO, ROSI K V25.01 CONTRACEPTION - ORAL CONTRACEPTION 08/01/2012 JIMÉNEZ DO, ROSI K V25.12 IUD REMOVAL 08/01/2012 JIMÉNEZ DO, ROSI K 623.5 LEUKORRHEA NOT SPECIFIED INFECTIVE 08/01/2012 JIMÉNEZ DO, ROSI K V25.01 CONTRACEPTION - ORAL CONTRACEPTION 08/01/2012 JIMÉNEZ DO, ROSI K V25.12 IUD REMOVAL 08/01/2012 JIMÉNEZ DO, ROSI K 623.5 LEUKORRHEA NOT SPECIFIED INFECTIVE 08/01/2012 JIMÉNEZ DO, ROSI K V25.01 CONTRACEPTION - ORAL CONTRACEPTION 08/01/2012 JIMÉNEZ DO, ROSI K V25.12 IUD REMOVAL 08/01/2012 JIMÉNEZ DO, ROSI K 623.5 LEUKORRHEA NOT SPECIFIED INFECTIVE 08/01/2012 JIMÉNEZ DO, ROSI K V25.01 CONTRACEPTION - ORAL CONTRACEPTION 08/01/2012 JIMÉNEZ DO, ROSI K V25.12 IUD REMOVAL 08/01/2012 ROSI COAT ROOM ATTENDANT, RYAN A 623.5 LEUKORRHEA NOT SPECIFIED INFECTIVE 08/01/2012 ROSI COAT ROOM ATTENDANT, RYAN A V25.01 CONTRACEPTION - ORAL CONTRACEPTION 08/01/2012 ROSI COAT ROOM ATTENDANT, RYAN A V25.12 IUD REMOVAL 08/01/2012 ROSI COAT ROOM ATTENDANT, RYAN A 623.5 LEUKORRHEA NOT SPECIFIED INFECTIVE 08/01/2012 ROSI COAT ROOM ATTENDANT, RYAN A V25.01 CONTRACEPTION - ORAL CONTRACEPTION 08/01/2012 ROSI COAT ROOM ATTENDANT, RYAN A V25.12 IUD REMOVAL 08/14/2012 Ot 786.50 CHEST PAIN NOS 08/14/2012 Ot 786.52 PAINFUL RESPIRATION 11/12/2012 V22.1 , NORMAL OTHER 11/12/2012 JIMÉNEZ DO, ROSI K V22.1 , NORMAL OTHER 11/12/2012 ROSI COAT ROOM ATTENDANT, RYAN A V22.1 , NORMAL OTHER 11/12/2012 ROSI COAT ROOM ATTENDANT, RYAN A V22.1 , NORMAL OTHER 11/12/2012 ROSI COAT ROOM ATTENDANT, RYAN A V22.1 , NORMAL OTHER 11/12/2012 JIMÉNEZ DO, ROSI K V22.1 , NORMAL OTHER 11/12/2012 ROSI COAT ROOM ATTENDANT, RYAN A V22.1 , NORMAL OTHER 11/12/2012 JIMÉNEZ DO, ROSI K V22.1 , NORMAL OTHER 11/12/2012 JIMÉNEZ DO, ROSI K V22.1 , NORMAL OTHER 11/12/2012 JIMÉNEZ DO, ROSI K V22.1 , NORMAL OTHER 11/12/2012 ROSI COAT ROOM ATTENDANT, RAYN A V22.1 , NORMAL OTHER 11/12/2012 JIMÉNEZ DO, ROSI K V22.1 , NORMAL OTHER 11/12/2012 JIMÉNEZ DO, ROSI K V22.1 , NORMAL OTHER 11/12/2012 JIMÉNEZ DO, ROSI K V22.1 , NORMAL OTHER 11/12/2012 JIMÉNEZ DO, ROSI K V22.1 , NORMAL OTHER 11/12/2012 ROSI COAT ROOM ATTENDANT, RYAN A V22.1 , NORMAL OTHER 11/12/2012 ROSI COAT ROOM ATTENDANT, RYAN A V22.1 , NORMAL OTHER 12/01/2012 JIMÉNEZ DO, ROSI K 632 , MISSED 12/01/2012 ROSI COAT ROOM ATTENDANT, RYAN A 632 , MISSED 12/01/2012 ROSI COAT ROOM ATTENDANT, RYAN A 632 , MISSED 12/01/2012 ROSI COAT ROOM ATTENDANT, RYAN A 632 , MISSED 12/01/2012 JIMÉNEZ DO, ROSI K 632 , MISSED 12/01/2012 ROSI COAT ROOM ATTENDANT, RYAN A 632 , MISSED 12/01/2012 JIMÉNEZ DO, ROSI K 632 , MISSED 12/01/2012 JIMÉNEZ DO, ROSI K 632 , MISSED 12/01/2012 JIMÉNEZ DO, ROSI K 632 , MISSED 12/01/2012 ROSI COAT ROOM ATTENDANT, RYAN A 632 , MISSED 12/01/2012 JIMÉNEZ DO, ROSI K 632 , MISSED 12/01/2012 JIMÉNEZ DO, ROSI K 632 , MISSED 12/01/2012 JIMÉNEZ DO, ROSI K 632 , MISSED 12/01/2012 JIMÉNEZ DO, ROSI K 632 , MISSED 12/01/2012 ROSI COAT ROOM ATTENDANT, RYAN A 632 , MISSED 12/01/2012 ROSI COAT ROOM ATTENDANT, RYAN A 632 , MISSED 02/12/2013 JIMÉNEZ DO, ROSI K 786.2 COUGH 02/12/2013 ROSI COAT ROOM ATTENDANT, RYAN A 786.2 COUGH 02/12/2013 ROSI COAT ROOM ATTENDANT, RYAN A 786.2 COUGH 02/12/2013 ROSI COAT ROOM ATTENDANT, RYAN A 786.2 COUGH 02/12/2013 JIMÉNEZ DO, ROSI K 786.2 COUGH 02/12/2013 ROSI COAT ROOM ATTENDANT, RYAN A 786.2 COUGH 02/12/2013 JIMÉNEZ DO, ROSI K 786.2 COUGH 02/12/2013 JIMÉNEZ DO, ROSI K 786.2 COUGH 02/12/2013 JIMÉNEZ DO, ROSI K 786.2 COUGH 02/12/2013 ROSI COAT ROOM ATTENDANT, RYAN A 786.2 COUGH 02/12/2013 JIMÉNEZ DO, ROSI K 786.2 COUGH 02/12/2013 JIMÉNEZ DO, ROSI K 786.2 COUGH 02/12/2013 JIMÉNEZ DO, ROSI K 786.2 COUGH 02/12/2013 JIMÉNEZ DO, ROSI K 786.2 COUGH 02/12/2013 ROSI COAT ROOM ATTENDANT, RYNA A 786.2 COUGH 02/12/2013 ROSI COAT ROOM ATTENDANT, RYAN A 786.2 COUGH 03/10/2013 ROSI COAT ROOM ATTENDANT, RYAN A 564.00 UNSPECIFIED CONSTIPATION 03/10/2013 ROSI COAT ROOM ATTENDANT, RYAN A 787.02 NAUSEA ALONE 03/10/2013 ROSI COAT ROOM ATTENDANT, RYAN A V23.2 , HIGH RISK W/ HX OF 03/10/2013 ROSI COAT ROOM ATTENDANT, RYAN A 564.00 UNSPECIFIED CONSTIPATION 03/10/2013 ROSI COAT ROOM ATTENDANT, RYAN A 787.02 NAUSEA ALONE 03/10/2013 ROSI COAT ROOM ATTENDANT, RYAN A V23.2 , HIGH RISK W/ HX OF 03/10/2013 ROSI COAT ROOM ATTENDANT, RYAN A 564.00 UNSPECIFIED CONSTIPATION 03/10/2013 ROSI COAT ROOM ATTENDANT, RYAN A 787.02 NAUSEA ALONE 03/10/2013 ROSI COAT ROOM ATTENDANT, RYAN A V23.2 , HIGH RISK W/ HX OF 03/10/2013 JIMÉNEZ DO, ROSI K 564.00 UNSPECIFIED CONSTIPATION 03/10/2013 JIMÉNEZ DO, ROSI K 787.02 NAUSEA ALONE 03/10/2013 JIMÉNEZ DO, ROSI K V23.2 , HIGH RISK W/ HX OF 03/10/2013 ROSI COAT ROOM ATTENDANT, RYAN A 564.00 UNSPECIFIED CONSTIPATION 03/10/2013 ROSI COAT ROOM ATTENDANT, RYAN A 787.02 NAUSEA ALONE 03/10/2013 ROSI COAT ROOM ATTENDANT, RYAN A V23.2 , HIGH RISK W/ HX OF 03/10/2013 JIMÉNEZ DO, ROSI K 564.00 UNSPECIFIED CONSTIPATION 03/10/2013 JIMÉNEZ DO, ROSI K 787.02 NAUSEA ALONE 03/10/2013 JIMÉNEZ DO, ROSI K V23.2 , HIGH RISK W/ HX OF 03/10/2013 JIMÉNEZ DO, ROSI K 564.00 UNSPECIFIED CONSTIPATION 03/10/2013 JIMÉNEZ DO, ROSI K 787.02 NAUSEA ALONE 03/10/2013 JIMÉNEZ DO, ROSI K V23.2 , HIGH RISK W/ HX OF 03/10/2013 JIMÉNEZ DO, ROSI K 564.00 UNSPECIFIED CONSTIPATION 03/10/2013 JIMÉNEZ DO, ROSI K 787.02 NAUSEA ALONE 03/10/2013 JIMÉNEZ DO, ROSI K V23.2 , HIGH RISK W/ HX OF 03/10/2013 ROSI COAT ROOM ATTENDANT, RYAN A 564.00 UNSPECIFIED CONSTIPATION 03/10/2013 ROSI COAT ROOM ATTENDANT, RYAN A 787.02 NAUSEA ALONE 03/10/2013 ROSI COAT ROOM ATTENDANT, RYAN A V23.2 , HIGH RISK W/ HX OF 03/10/2013 JIMÉNEZ DO, ROSI K 564.00 UNSPECIFIED CONSTIPATION 03/10/2013 JIMÉNEZ DO, ROSI K 787.02 NAUSEA ALONE 03/10/2013 JIMÉNEZ DO, ROSI K V23.2 , HIGH RISK W/ HX OF 03/10/2013 JIMÉNEZ DO, ROSI K 564.00 UNSPECIFIED CONSTIPATION 03/10/2013 JIMÉNEZ DO, ROSI K 787.02 NAUSEA ALONE 03/10/2013 JIMÉNEZ DO, ROSI K V23.2 , HIGH RISK W/ HX OF 03/10/2013 JIMÉNEZ DO, ROSI K 564.00 UNSPECIFIED CONSTIPATION 03/10/2013 JIMÉNEZ DO, ROSI K 787.02 NAUSEA ALONE 03/10/2013 JIMÉNEZ DO, ROSI K V23.2 , HIGH RISK W/ HX OF 03/10/2013 JIMÉNEZ DO, ROSI K 564.00 UNSPECIFIED CONSTIPATION 03/10/2013 JIMÉNEZ DO, ROSI K 787.02 NAUSEA ALONE 03/10/2013 JIMÉNEZ DO, ROSI K V23.2 , HIGH RISK W/ HX OF 03/10/2013 ROSI COAT ROOM ATTENDANT, RYAN A 564.00 UNSPECIFIED CONSTIPATION 03/10/2013 ROSI COAT ROOM ATTENDANT, RYAN A 787.02 NAUSEA ALONE 03/10/2013 ROSI COAT ROOM ATTENDANT, RYAN A V23.2 , HIGH RISK W/ HX OF 03/10/2013 ROSI COAT ROOM ATTENDANT, RYAN A 564.00 UNSPECIFIED CONSTIPATION 03/10/2013 ROSI COAT ROOM ATTENDANT, RYAN A 787.02 NAUSEA ALONE 03/10/2013 ROSI COAT ROOM ATTENDANT, RYAN A V23.2 , HIGH RISK W/ HX OF 05/09/2013 ANNETTE COOPER, AVERY Anne Ot 649.53 SPOTTING COMP , ANTEPARTUM COND 07/06/2013 JIMÉNEZ DO, ROSI K V04.81 FLU SHOT 07/06/2013 JIMÉNEZ DO, ROSI K V04.81 FLU SHOT 07/06/2013 JIMÉNEZ DO, ROSI K V04.81 FLU SHOT 07/06/2013 ROSI COAT ROOM ATTENDANT, RYAN A V04.81 FLU SHOT 07/06/2013 JIMÉNEZ DO, ROSI K V04.81 FLU SHOT 07/06/2013 JIMÉNEZ DO, ROSI K V04.81 FLU SHOT 07/06/2013 JIMÉNEZ DO, ROSI K V04.81 FLU SHOT 07/06/2013 JIMÉNEZ DO, ROSI K V04.81 FLU SHOT 07/06/2013 ROSI COAT ROOM ATTENDANT, RYAN A V04.81 FLU SHOT 07/06/2013 ROSI COAT ROOM ATTENDANT, RYAN A V04.81 FLU SHOT 08/03/2013 JIMÉNEZ DO, ROSI K V06.1 TDAP DX 08/03/2013 JIMÉNEZ DO, ROSI K V77.1 DIABETES SCREENING 08/03/2013 JIMÉNEZ DO, ROSI K V78.0 ANEMIA SCREENING 08/03/2013 JIMÉNEZ DO, ROSI K V06.1 TDAP DX 08/03/2013 JIMÉNEZ DO, ROSI K V77.1 DIABETES SCREENING 08/03/2013 JIMÉNEZ DO, ROSI K V78.0 ANEMIA SCREENING 08/03/2013 ROSI COAT ROOM ATTENDANT, RYAN A V06.1 TDAP DX 08/03/2013 ROSI COAT ROOM ATTENDANT, RYAN A V77.1 DIABETES SCREENING 08/03/2013 ROSI COAT ROOM ATTENDANT, RYAN A V78.0 ANEMIA SCREENING 08/03/2013 JIMÉNEZ DO, ROSI K V06.1 TDAP DX 08/03/2013 JIMÉNEZ DO, ROSI K V77.1 DIABETES SCREENING 08/03/2013 JIMÉNEZ DO, ROSI K V78.0 ANEMIA SCREENING 08/03/2013 JIMÉNEZ DO, ROSI K V06.1 TDAP DX 08/03/2013 JIMÉNEZ DO, ROSI K V77.1 DIABETES SCREENING 08/03/2013 JIMÉNEZ DO, ROSI K V78.0 ANEMIA SCREENING 08/03/2013 JIMÉNEZ DO, ROSI K V06.1 TDAP DX 08/03/2013 JIMÉNEZ DO, ROSI K V77.1 DIABETES SCREENING 08/03/2013 JIMÉNEZ DO, ROSI K V78.0 ANEMIA SCREENING 08/03/2013 JIMÉNEZ DO, ROSI K V06.1 TDAP DX 08/03/2013 JIMÉNEZ DO, ROSI K V77.1 DIABETES SCREENING 08/03/2013 JIMÉNEZ DO, ROSI K V78.0 ANEMIA SCREENING 08/03/2013 ROSI COAT ROOM ATTENDANT, RYAN A V06.1 TDAP DX 08/03/2013 ROSI BUNN, RYAN A V77.1 DIABETES SCREENING 08/03/2013 RYAN ARANDA APRN A V78.0 ANEMIA SCREENING 08/03/2013 RYAN ARANDA APRN A V06.1 TDAP DX 08/03/2013 RYAN ARANDA APRN A V77.1 DIABETES SCREENING 08/03/2013 HUMA ARANDA APRNIDI A V78.0 ANEMIA SCREENING 08/17/2013 JIMÉNEZ DO ROSI K 287.5 THROMBOCYTOPENIA UNSPECIFIED 08/17/2013 HUMA ARANDA APRNIDI A 287.5 THROMBOCYTOPENIA UNSPECIFIED 08/17/2013 JIMÉNEZ DO, ROSI K 287.5 THROMBOCYTOPENIA UNSPECIFIED 08/17/2013 JIMÉNEZ DO, ROSI K 287.5 THROMBOCYTOPENIA UNSPECIFIED 08/17/2013 JIMÉNEZ DO, ROSI K 287.5 THROMBOCYTOPENIA UNSPECIFIED 08/17/2013 JIMÉNEZ DO, ROSI K 287.5 THROMBOCYTOPENIA UNSPECIFIED 08/17/2013 RYAN ARANDA APRN A 287.5 THROMBOCYTOPENIA UNSPECIFIED 08/17/2013 HUMA ARANDA APRNIDI A 287.5 THROMBOCYTOPENIA UNSPECIFIED 09/14/2013 JIMÉNEZ DO, ROSI K V28.6 GBS SCREENING 09/14/2013 JESSY PINO ROSI K V28.6 GBS SCREENING 09/14/2013 JIMÉNEZ , ROSI K V28.6 GBS SCREENING 09/14/2013 JIMÉNEZ , ROSI K V28.6 GBS SCREENING 09/14/2013 RYAN ARANDA APRN A V28.6 GBS SCREENING 09/14/2013 RYAN ARANDA APRN A V28.6 GBS SCREENING 10/02/2013 JESSY PINO ROSI K Ot 623.5 NONINFECT VAG LEUKORRHEA 10/02/2013 JESSY PINO ROSI K Ot 654.73 ABNORM VAGINA-ANTEPARTUM 10/12/2013 JESSY PINO ROSI K Ot 661.23 UTERINE INERT NEC-ANTEPA 10/16/2013 JESSY PINO ROSI K Ot 287.5 THROMBOCYTOPENIA NOS 10/16/2013 JESSY PINO ROSI K Ot 649.31 COAGULATION DEFECTS COMP PREG/CHILDBIRTH 10/16/2013 JESSY PINO ROSI K Ot V27.0 DELIVER-SINGLE LIVEBORN 12/01/2013 ROSI BUNN, RYAN A V24.2 F/U, ROUTINE 12/01/2013 ROSI COAT ROOM ATTENDANT, RYAN A V25.01 CONTRACEPTION - ORAL CONTRACEPTION 12/01/2013 ROSI BUNN, RYAN A V24.2 F/U, ROUTINE 12/01/2013 ROSI COAT ROOM ATTENDANT, RYAN A V25.01 CONTRACEPTION - ORAL CONTRACEPTION 05/04/2014 RYAN ARANDA APRN 788.41 URINARY FREQUENCY 09/26/2016 SHANELL COOPER, JEFFREY Armendariz Ot K59.00 CONSTIPATION, UNSPECIFIED 12/05/2016 AVERY BRYANT MD Ot 623.5 NONINFECT VAG LEUKORRHEA 12/05/2016 AVERY BRYANT MD Ot V22.2 PREG STATE, INCIDENTAL 12/05/2016 ROSI, RYAN Henna ONI Ot 656.83 FET/PLAC PROB NEC-ANTEPA 12/05/2016 ROSI, RYAN Henna ONI Ot V67.9 FOLLOW-UP EXAM NOS 12/05/2016 ROSI, RYAN Aguillon ONI Ot V28.3 ENCOUNTER ROUTINE SCREEN FOR MALFORMATIO 12/05/2016 ROSI JIMÉNEZ DO Ot V23.2 PREG W HX OF 12/05/2016 ROSI JIMÉNEZ DO Ot V28.89 OTHER SPECIFIED SCREENING 12/19/2016 EMILY KRAMER MD Ot O20.8 OTHER HEMORRHAGE IN EARLY 12/19/2016 EMILY KRAMER MD Ot Z3A.01 LESS THAN 8 WEEKS GESTATION OF 12/19/2016 EMILY KRAMER MD Ot O41.8X10 OTH DISRD OF AMNIOTIC FLUID AND MEMBRNS, 12/19/2016 EMILY KRAMER MD Ot Z3A.09 9 WEEKS GESTATION OF 12/19/2016 AVERY BRYANT MD Ot 623.5 NONINFECT VAG LEUKORRHEA 12/19/2016 AVERY BRYANT MD Ot V22.2 PREG STATE, INCIDENTAL 12/19/2016 ROSI RYAN Henna ONI Ot 656.83 FET/PLAC PROB NEC-ANTEPA 12/19/2016 ROSI, RYAN Henna ONI Ot V67.9 FOLLOW-UP EXAM NOS 12/19/2016 ROSIRYAN SEGOVIA ONI Ot V28.3 ENCOUNTER ROUTINE SCREEN FOR MALFORMATIO 12/19/2016 ROSI JIMÉNEZ DO Ot V23.2 PREG W HX OF 12/19/2016 ROSI JIMÉNEZ DO Ot V28.89 OTHER SPECIFIED SCREENING 12/19/2016 EMILY KRAMER MD Ot O20.8 OTHER HEMORRHAGE IN EARLY 12/19/2016 EMILY KRAMER MD Ot Z3A.01 LESS THAN 8 WEEKS GESTATION OF 12/19/2016 EMILY KRAMER MD Ot O41.8X10 OTH DISRD OF AMNIOTIC FLUID AND MEMBRNS, 12/19/2016 EMILY KRAMER MD Ot Z3A.09 9 WEEKS GESTATION OF 01/10/2017 AVERY BRYANT MD Ot 623.5 NONINFECT VAG LEUKORRHEA 01/10/2017 AVERY BRYANT MD Ot V22.2 PREG STATE, INCIDENTAL 01/10/2017 RYAN ARANDA APRN Ot 656.83 FET/PLAC PROB NEC-ANTEPA 01/10/2017 RYAN ARANDA APRN Ot V67.9 FOLLOW-UP EXAM NOS 01/10/2017 RYAN ARANDA APRN Ot V28.3 ENCOUNTER ROUTINE SCREEN FOR MALFORMATIO 01/10/2017 ROSI JIMÉNEZ DO Ot V23.2 PREG W HX OF 01/10/2017 ROSI JIMÉNEZ DO Ot V28.89 OTHER SPECIFIED SCREENING 01/10/2017 EMILY KRAMER MD Ot O20.8 OTHER HEMORRHAGE IN EARLY 01/10/2017 EMILY KRAMER MD Ot Z3A.01 LESS THAN 8 WEEKS GESTATION OF 01/10/2017 EMILY KRAMER MD Ot O41.8X10 OTH DISRD OF AMNIOTIC FLUID AND MEMBRNS, 01/10/2017 EMILY KRAMER MD Ot Z3A.09 9 WEEKS GESTATION OF 01/11/2017 EMILY KRAMER MD Ot O20.8 OTHER HEMORRHAGE IN EARLY 01/11/2017 EMILY KRAMER MD Ot Z3A.01 LESS THAN 8 WEEKS GESTATION OF 01/12/2017 EMILY KRAMER MD Ot O20.8 OTHER HEMORRHAGE IN EARLY 01/12/2017 EMILY KRAMER MD Ot Z3A.01 LESS THAN 8 WEEKS GESTATION OF 01/25/2017 EMILY KRAMER MD Ot O41.8X10 OTH DISRD OF AMNIOTIC FLUID AND MEMBRNS, 01/25/2017 EMILY KRAMER MD Ot Z3A.09 9 WEEKS GESTATION OF 01/29/2017 EMILY KRAMER MD Ot O41.8X10 OTH DISRD OF AMNIOTIC FLUID AND MEMBRNS, 01/29/2017 EMILY KRAMER MD Ot Z3A.09 9 WEEKS GESTATION OF 02/07/2017 EMILY KRAMER MD Ot O41.8X10 OTH DISRD OF AMNIOTIC FLUID AND MEMBRNS, 02/07/2017 EMILY KRAMER MD Ot Z3A.09 9 WEEKS GESTATION OF 02/08/2017 EMILY KRAMER MD Ot O20.8 OTHER HEMORRHAGE IN EARLY 02/08/2017 EMILY KRAMER MD Ot Z3A.01 LESS THAN 8 WEEKS GESTATION OF 02/19/2017 EMILY KRAMER MD Ot O20.8 OTHER HEMORRHAGE IN EARLY 02/19/2017 EMILY KRAMER MD Ot Z3A.01 LESS THAN 8 WEEKS GESTATION OF 03/18/2017 EMILY KRAMER MD Ot Z36.87 ENCOUNTER FOR SCREENING FOR UN 03/18/2017 EMILY KRAMER MD Ot Z3A.21 21 WEEKS GESTATION OF 03/26/2017 EMILY KRAMER MD Ot Z36.87 ENCOUNTER FOR SCREENING FOR UN 03/26/2017 EMILY KRAMER MD Ot Z3A.21 21 WEEKS GESTATION OF 04/05/2017 EMILY KRAMER MD Ot O41.8X10 OTH DISRD OF AMNIOTIC FLUID AND MEMBRNS, 04/05/2017 EMILY KRAMER MD Ot Z3A.09 9 WEEKS GESTATION OF 04/16/2017 EMILY KRAMER MD Ot O41.8X10 OTH DISRD OF AMNIOTIC FLUID AND MEMBRNS, 04/16/2017 EMILY KRAMER MD Ot Z3A.09 9 WEEKS GESTATION OF 04/23/2017 EMILY KRAMER MD Ot Z36.2 ENCOUNTER FOR OTHER SCREENING 04/23/2017 EMILY KRAMER MD, Ot Z3A.00 WEEKS OF GESTATION OF NOT SPEC 06/17/2017 EMILY KRAMER MD, Ot O36.8131 DECREASED MOVEMENTS, THIRD TRIMEST 06/17/2017 EMILY KRAMER MD, Ot Z3A.00 WEEKS OF GESTATION OF NOT SPEC 06/26/2017 EMILY KRAMER MD, Ot O60.03 LABOR WITHOUT DELIVERY, THIRD TR 06/26/2017 EMILY KRAMER MD, Ot Z3A.36 36 WEEKS GESTATION OF 06/28/2017 EMILY KRAMER MD, Ot O36.8131 DECREASED MOVEMENTS, THIRD TRIMEST 06/28/2017 EMILY KRAMER MD, Ot Z3A.00 WEEKS OF GESTATION OF NOT SPEC Procedures Code Description [place] [address] GC/CHLAM PROBE (STATE) 04/23/2012 35419 URINE TEST (IN- HOUSE) 04/23/2012 46025 UA LONG DIP 04/23/2012 38135 TRICHOMONAS (IN-HOUSE) 04/23/2012 57663 CULTURE UROGENITAL 04/26/2012 66685 PAP SMEAR 04/28/2012 [id number] GYNECOLOGIC ADDENDUM REPORT (RESULT ONLY) 04/30/2012 BVVAG BACTERIAL VAGINOSIS (IN- HOUSE) 08/01/2012 37026 IUD REMOVAL 08/04/2012 69903 ROUTINE VENIPUNCTURE 11/12/2012 01991 URINE TEST (IN- HOUSE) 11/12/2012 73567 CBC 11/13/2012 89185 TSH 11/13/2012 28233 US OB - EARLY <14 WEEKS 11/14/2012 46702 HIV ANTIBODIES (RML) 11/14/2012 88581 BLOOD TYPE/Rh FACTOR 11/14/2012 9996620 ANTIBODY SCREEN (RESULT ONLY) 11/14/2012 16801 RUBELLA ANTIBODY, IGG 11/14/2012 14472 TRICHOMONAS (IN-HOUSE) 11/14/2012 10500 CULTURE URINE 11/14/2012 22922 SYPHILLIS-STATE LAB 11/16/2012 22523 ANTIBODY SCREEN (order) 11/16/2012 76987 HEP B SURFACE ANTIGEN (STATE ) 11/16/2012 42618 CULTURE UROGENITAL 11/17/2012 20559 US OB - EARLY <14 WEEKS 11/18/2012 11134 GC/CHLAM PROBE (STATE) 11/18/2012 75327 URINE TEST (IN- HOUSE) 02/12/2013 26827 US OB - EARLY <14 WEEKS 03/10/2013 30801 UA LONG DIP 03/10/2013 56031 CULTURE UROGENITAL 03/18/2013 92683 GC/CHLAM PROBE (STATE) 03/18/2013 50690 UA W/ CULTURE IF INDICATED 03/18/2013 12986 TRICHOMONAS (IN-HOUSE) 03/18/2013 09048 ROUTINE VENIPUNCTURE 04/06/2013 92357 UA OB DIP 04/06/2013 03218 CBC 04/06/2013 21325 CULTURE URINE 04/07/2013 66666 ROUTINE VENIPUNCTURE 05/11/2013 53278 UA OB DIP 05/11/2013 45755 US OB - COMPLETE >14 WEEKS 05/12/2013 TETRA TETRA SCREEN 05/12/2013 23279 UA OB DIP 06/08/2013 92533 UA OB DIP 07/06/2013 01063 ROUTINE VENIPUNCTURE 08/03/2013 20445 UA OB DIP 08/03/2013 90350 CBC 08/04/2013 78691 GLUCOSE ALEX 1 HOUR 08/04/2013 78418 UA OB DIP 08/17/2013 85220 UA LONG DIP 09/02/2013 69818 CULTURE URINE 09/03/2013 29009 ROUTINE VENIPUNCTURE 09/22/2013 46235 UA OB DIP 09/22/2013 11472 CBC 09/22/2013 32961 UA OB DIP 09/28/2013 98444 UA OB DIP 10/06/2013 61131 UA OB DIP 10/12/2013 73.59 MANUAL ASSIST DELIV NEC 10/15/2013 53026 TEST, URINE (IN- HOUSE) 12/01/2013 73958 UA W/ CULTURE IF INDICATED 05/04/2014 53452 TEST, URINE (IN- HOUSE) 05/04/2014 Results Test Result Range Complete blood count (CBC) with automated white blood cell (WBC) differential - 09/26/16 15:48 Blood leukocytes automated count (number/volume) 5.3 10*3/uL 4.3-11.0 Blood erythrocytes automated count (number/volume) 4.49 10*6/uL 4.35-5.85 Venous blood hemoglobin measurement (mass/volume) 14.1 g/dL 11.5-16.0 Blood hematocrit (volume fraction) 41 % 35-52 Automated erythrocyte mean corpuscular volume 92 [foz_us] 80-99 Automated erythrocyte mean corpuscular hemoglobin (mass per erythrocyte) 31 pg 25-34 Automated erythrocyte mean corpuscular hemoglobin concentration measurement ( mass/volume) 34 g/dL 32-36 Automated erythrocyte distribution width ratio 11.9 % 10.0-14.5 Automated blood platelet count (count/volume) 159 10*3/uL 130-400 Automated blood platelet mean volume measurement 10.7 [foz_us] 7.4-10.4 Automated blood neutrophils/100 leukocytes 61 % 42-75 Automated blood lymphocytes/100 leukocytes 30 % 12-44 Blood monocytes/100 leukocytes 7 % 0-12 Automated blood eosinophils/100 leukocytes 2 % 0-10 Automated blood basophils/100 leukocytes 1 % 0-10 Blood neutrophils automated count (number/volume) 3.3 10*3 1.8-7.8 Blood lymphocytes automated count (number/volume) 1.6 10*3 1.0-4.0 Blood monocytes automated count (number/volume) 0.4 10*3 0.0-1.0 Automated eosinophil count 0.1 10*3/uL 0.0-0.3 Automated blood basophil count (count/volume) 0.0 10*3/uL 0.0-0.1 Comprehensive metabolic panel - 09/26/16 15:48 Serum or plasma sodium measurement (moles/volume) 136 mmol/L 135-145 Serum or plasma potassium measurement (moles/volume) 4.1 mmol/L 3.6-5.0 Serum or plasma chloride measurement (moles/volume) 102 mmol/L 98-107 Carbon dioxide 26 mmol/L 21-32 Serum or plasma anion gap determination (moles/volume) 8 mmol/L 5-14 Serum or plasma urea nitrogen measurement (mass/volume) 12 mg/dL 7-18 Serum or plasma creatinine measurement (mass/volume) 0.80 mg/dL 0.60-1.30 Serum or plasma urea nitrogen/creatinine mass ratio 15 NRG Serum or plasma creatinine measurement with calculation of estimated glomerular filtration rate > NRG Serum or plasma glucose measurement (mass/volume) 70 mg/dL 70-105 Serum or plasma calcium measurement (mass/volume) 9.6 mg/dL 8.5-10.1 Serum or plasma total bilirubin measurement (mass/volume) 0.4 mg/dL 0.1-1.0 Serum or plasma alkaline phosphatase measurement (enzymatic activity/volume) 55 U/L 40-136 Serum or plasma aspartate aminotransferase measurement (enzymatic activity/ volume) 15 U/L 5-34 Serum or plasma alanine aminotransferase measurement (enzymatic activity/volume ) 15 U/L 0-55 Serum or plasma protein measurement (mass/volume) 7.5 g/dL 6.4-8.2 Serum or plasma albumin measurement (mass/volume) 4.2 g/dL 3.2-4.5 Magnesium - 09/26/16 15:48 Magnesium 1.8 mg/dL 1.8-2.4 Serum or plasma thyrotropin measurement by detection limit <=0.05 miu/l (units/ volume) - 09/26/16 15:48 Serum or plasma thyrotropin measurement by detection limit <=0.05 miu/l (units/ volume) 0.85 u[iU]/mL 0.35-4.94 Complete urinalysis with reflex to culture - 09/26/16 16:08 Urine color determination YELLOW NRG Urine clarity determination SLIGHTLY CLOUDY NRG Urine pH measurement by test strip 6 5-9 Specific gravity of urine by test strip 1.010 1.016- 1.022 Urine protein assay by test strip, semi-quantitative NEGATIVE NEGATIVE Urine glucose detection by automated test strip NEGATIVE NEGATIVE Erythrocytes detection in urine sediment by light microscopy NEGATIVE NEGATIVE Urine ketones detection by automated test strip NEGATIVE NEGATIVE Urine nitrite detection by test strip NEGATIVE NEGATIVE Urine total bilirubin detection by test strip NEGATIVE NEGATIVE Urine urobilinogen measurement by automated test strip (mass/volume) NORMAL NORMAL Urine leukocyte esterase detection by dipstick NEGATIVE NEGATIVE Automated urine sediment erythrocyte count by microscopy (number/high power field) NONE NRG Automated urine sediment leukocyte count by microscopy (number/high power field ) RARE NRG Bacteria detection in urine sediment by light microscopy FEW NRG Squamous epithelial cells detection in urine sediment by light microscopy 10-25 NRG Crystals detection in urine sediment by light microscopy NONE NRG Casts detection in urine sediment by light microscopy NONE NRG Mucus detection in urine sediment by light microscopy NEGATIVE NRG Complete urinalysis with reflex to culture NO NRG Complete urinalysis with reflex to culture - 06/24/17 14:40 Urine color determination YELLOW NRG Urine clarity determination CLEAR NRG Urine pH measurement by test strip 7 5-9 Specific gravity of urine by test strip 1.005 1.016- 1.022 Urine protein assay by test strip, semi-quantitative NEGATIVE NEGATIVE Urine glucose detection by automated test strip NEGATIVE NEGATIVE Erythrocytes detection in urine sediment by light microscopy NEGATIVE NEGATIVE Urine ketones detection by automated test strip NEGATIVE NEGATIVE Urine nitrite detection by test strip NEGATIVE NEGATIVE Urine total bilirubin detection by test strip NEGATIVE NEGATIVE Urine urobilinogen measurement by automated test strip (mass/volume) NORMAL NORMAL Urine leukocyte esterase detection by dipstick NEGATIVE NEGATIVE Automated urine sediment erythrocyte count by microscopy (number/high power field) NONE NRG Automated urine sediment leukocyte count by microscopy (number/high power field ) NONE NRG Bacteria detection in urine sediment by light microscopy NEGATIVE NRG Squamous epithelial cells detection in urine sediment by light microscopy TNTC NRG Crystals detection in urine sediment by light microscopy NONE NRG Casts detection in urine sediment by light microscopy NONE NRG Mucus detection in urine sediment by light microscopy NEGATIVE NRG Complete urinalysis with reflex to culture NO NRG Renal epithelial cells detection in urine sediment by light microscopy 10-25 NRG Encounters ACCT No. Visit Date/Time Discharge Status Pt. Type Provider Facility Loc./Unit Complaint [id number] 07/03/2017 05:32:00 07/03/2017 11:50:00 DIS Outpatient ROSI JIMÉNEZ DO [facility] WSo CONTRACTIONS [id number] 06/24/2017 14:22:00 06/24/2017 18:45:00 DIS Outpatient EMILY KRAMER MD [facility]So CONTRACTIONS [id number] 06/14/2017 15:37:00 06/14/2017 23:59:59 CLS Outpatient EIMLY KRAMER MD [facility] RAD DECREASED MOVEMENTS IN THIRD TRIMESTER [id number] 04/11/2017 14:02:00 04/11/2017 23:59:59 CLS Outpatient EMILY KRAMER MD [facility] RAD Z36.2 EVALUATE ANOTOMY [id number] 03/14/2017 10:01:00 03/14/2017 23:59:59 CLS Outpatient EMILY KRAMER MD [facility] RAD SURVEY [id number] 12/17/2016 14:22:00 12/17/2016 23:59:59 CLS Outpatient EMILY KRAMER MD [facility] RAD O41.8X10 SUBCHORIONIC HEMORRHAGE [id number] 12/05/2016 14:37:00 12/05/2016 23:59:59 CLS Outpatient EMILY KRAMER MD [facility] RAD THREATENED MISCARRIAGE [id number] 09/26/2016 15:21:00 09/26/2016 17:44:00 DIS Emergency JEFFREY REECE MD [facility] ER ABD PAIN, CONSTIPATION [id number] 10/15/2013 06:18:00 10/16/2013 19:35:00 DIS Inpatient ROSI JIMÉNEZ DO [facility] WS INDUCTION [id number] 10/12/2013 00:24:00 10/12/2013 02:35:00 DIS Outpatient ROSI JIMÉNEZ DO [facility] WSo CONTRACTIONS [id number] 10/02/2013 11:45:00 10/02/2013 13:00:00 DIS Outpatient ROSI JIMÉNEZ DO [facility] WSo WATER LEAKING [id number] 05/21/2013 10:13:00 05/21/2013 23:59:59 CLS Outpatient ROSI JIMÉNEZ DO [facility] RAD SURVEY [id number] 05/09/2013 11:43:00 05/09/2013 14:25:00 DIS Emergency AVERY BRYANT MD [facility] ER WEAK SPOTTING DIZZY 17 WEEKS PREG [id number] 03/16/2013 15:00:00 03/16/2013 23:59:59 CLS Outpatient RYAN ARANDA APRN [facility] RAD DATING [id number] 12/01/2012 10:33:00 12/01/2012 23:59:59 CLS Outpatient RYAN ARANDA APRN [facility] RAD FOLLOW-UP FOR LOW EMBRYONIC HEART RATE [id number] 11/14/2012 11:49:00 11/14/2012 23:59:59 CLS Outpatient AVERY BRYANT MD [facility] RAD POSITIVE TEST W /VAGINAL DISCHARGE [id number] 08/14/2012 17:32:00 Document Registration [id number] 05/04/2014 14:06:00 05/04/2014 23:59:59 CLS Outpatient HUMA ARANDA APRNELOINA Aguillon [id number] 12/01/2013 16:35:00 12/01/2013 23:59:59 CLS Outpatient HUMA ARANDA APRNELOINA Aguillon [id number] 11/02/2013 11:35:00 11/02/2013 23:59:59 CLS Outpatient JESSY PINOROSI [id number] 10/12/2013 10:04:00 10/12/2013 23:59:59 CLS Outpatient JESSY PINOROSI [id number] 09/28/2013 15:03:00 09/28/2013 23:59:59 CLS Outpatient JESSY PINOROSI [id number] 09/22/2013 15:48:00 09/22/2013 23:59:59 CLS Outpatient JESSY PINOROSI [id number] 09/02/2013 14:56:00 09/02/2013 23:59:59 CLS Outpatient HUMA ARANDA APRNELOINA Aguillon [id number] 08/17/2013 14:08:00 08/17/2013 23:59:59 CLS Outpatient MADISON JIMÉNEZ DOHenna Anne [id number] 08/03/2013 15:41:00 08/03/2013 23:59:59 CLS Outpatient JESSY PINO ROSI K [id number] 07/06/2013 14:35:00 07/06/2013 23:59:59 CLS Outpatient JESSY PINO ROSI K [id number] 06/08/2013 17:45:00 06/08/2013 23:59:59 CLS Outpatient ROSI BUNNRYAN [id number] 05/11/2013 14:27:00 05/11/2013 23:59:59 CLS Outpatient JESSY PINOROSI [id number] 04/06/2013 11:37:00 04/06/2013 23:59:59 CLS Outpatient ROSI RANDOLPHRYAN Arango [id number] 03/18/2013 15:08:00 03/18/2013 23:59:59 CLS Outpatient ROSI RANDOLPHRYAN Arango [id number] 03/10/2013 10:37:00 03/10/2013 23:59:59 CLS Outpatient HUMA ARANDA APRNELOINA Aguillon [id number] 02/12/2013 09:51:00 02/12/2013 23:59:59 CLS Outpatient ROSI JIMÉNEZ DO [id number] 08/01/2012 11:32:00 08/01/2012 23:59:59 CLS Outpatient [id number] 04/23/2012 11:04:00 04/23/2012 23:59:59 CLS Outpatient ALFONSO MALDONADO MD [id number] 11/14/2012 13:33:00 Document Registration
[2017-07-15 10:30] VITALS: BP 130/76
[2017-07-15] MEDS ORDERED: METOCLOPRAMIDE INJ 10 MG/2 ML (REGLAN) IV ONE (10:45)
[2017-07-15] MEDS ORDERED: FAMOTIDINE 20MG/2ML IV (PEPCID) IV ONE (10:45)
[2017-07-15] MEDS ORDERED: ceFAZolin INJECTION 1,000 MG in NS (IVPB) 50 ML IV ONE (10:45)
[2017-07-15] MEDS ORDERED: LACTATED RINGERS 1,000 ML IV PRN (10:45)
[2017-07-15] MEDS ORDERED: CATHETER FLUSH 10 ML SYR IV PRN (10:45)
[2017-07-15] MEDS ORDERED: CITRIC ACID/SOB CIT (BICITRA) 30 ML UDC PO ONE (10:45)
[2017-07-15] MEDS ORDERED: NS (IVPB) 50 ML ONE (10:47)
[2017-07-15] MEDS ORDERED: ceFAZolin 1,000 MG (ANCEF) VIAL ONE (10:47)
[2017-07-15 11:00] VITALS: BP 117/73
[2017-07-15] MEDS ORDERED: fentaNYL INJECTION 100 MCG/2 ML AMP ONE (11:03)
[2017-07-15] MEDS ORDERED: KETAMINE HCL 100 MG/ML 5 ML VIAL ONE (11:04)
--- NOTE | 2017-07-15 11:05 | History & Physical-OB ---
OB - Chief Complaint & HPI Date/Time Date of Admission: Date of Admission: Jul 15, 2017 at 10:07 am Time Seen by Provider: 10:50 Chief Complaint/History OB-Reason for Admission/Chief: Section Hx : 4 Hx Para: 2 Expected Date of Delivery: Jul 20, 2017 Gestational Age in Weeks: 39 Gestational Age in Days: 2 Other reason for admission: Transverse presentation, spine down with cord presentation. 5 cm dilated. Consult of Dr. Levin due to malpresentation Admission Nurse Assessment Rev: Yes Allergies and Home Medications Allergies Coded Allergies: No Known Drug Allergies (Verified , 02/03/09) Home Medications Famotidine 40 Mg Tablet, 40 MG PO BID, (Reported) Vit W-Ca,Fe,FA(<1 mg) 1 Each Tablet, 1 EACH PO DAILY, (Reported) OB - History Hx of Present Care: Yes Ultrasounds: Normal mid trimester US Obstetrical Complications: None Medical Complications: None Obstetrical History Hx Complication: Yes (elevated BP's x2 visits) Delivery History Hx Blood Disorders: No Patient Past Medical History n/a Social History/Family History Sexually Transmitted Disease: No 2nd Hand Smoke Exposure: Yes Immunizations Hepatitis A: Yes Hepatitis B: Yes Tetanus Booster (TDap): More than 5yrs Date of Influenza Vaccine: Mar 07, 2017 OB - Admission Exam Physical Exam HEENT: NCAT Heart: Rhythm Normal Lungs: Clear Abdomen: Gravid Extremities: Normal Reflexes: Normal Cervical Dilatation: 5cm Effacement: 75% Station: -1 Membranes: Intact Heart Rate: 130's Accelerations: Accelerations Present Decelerations: No Decelerations Short Term Variability: Present Jail Variability: Average (6-25) Contractions on Admission: 6-10 Minutes Apart Intensity: Moderate OB - Assessment/Plan/Diagnosis Assessment Assessment: section Plan Plan: Section Discharge Diagnosis Diagnosis: 27 yo @ 39.2 Advanced cerv dilatation Left transverse spine down Cord presentation CORNEL ROPER DO Jul 15, 2017 11:05 am
[2017-07-15 11:08] LABS: BASOPHILS % (AUTO) 0 % (0-10); EOSINOPHILS # (AUTO) 0.1 10^3/uL (0.0-0.3); EOSINOPHILS % (AUTO) 1 % (0-10); HEMATOCRIT 30 % (35-52); HEMOGLOBIN 10.2 G/DL (11.5-16.0); LYMPHOCYTES # (AUTO) 1.2 X 10^3 (1.0-4.0); LYMPHOCYTES % (AUTO) 13 % (12-44); MEAN CORPUSCULAR HEMOGLOBIN 30 PG (25-34); MEAN CORPUSCULAR HGB CONC 34 G/DL (32-36); MEAN CORPUSCULAR VOLUME 86 FL (80-99); MEAN PLATELET VOLUME 10.6 FL (7.4-10.4); MONOCYTES # (AUTO) 0.8 X 10^3 (0.0-1.0); MONOCYTES % (AUTO) 8 % (0-12); NEUTROPHILS # (AUTO) 7.6 X 10^3 (1.8-7.8); NEUTROPHILS % (AUTO) 78 % (42-75); PLATELET COUNT 123 10^3/uL (130-400); RED BLOOD COUNT 3.46 10^6/uL (4.35-5.85); RED CELL DISTRIBUTION WIDTH 12.9 % (10.0-14.5); WHITE BLOOD COUNT 9.6 10^3/uL (4.3-11.0)
[2017-07-15 11:21] VITALS: BP 125/77
[2017-07-15] MEDS ORDERED: OXYTOCIN/NORMAL SALINE 1,000 ML IV ONE (11:50)
[2017-07-15] MEDS ORDERED: PHENYLEPHRINE 100 MCG/ML 10 ML (ANESTHESIA) SYR ONE (11:58)
[2017-07-15] MEDS ORDERED: KETOROLAC 30 MG/ML VIAL ONE (11:58)
[2017-07-15] MEDS ORDERED: OXYTOCIN/NORMAL SALINE 500 ML IV SCH (12:22)
[2017-07-15] MEDS ORDERED: TETANUS,DIPTH,PERTUSS P/F (BOOSTRIX) 0.5 ML VIAL IM SCH (12:30)
[2017-07-15] MEDS ORDERED: HYDROmorphone (DILAUDID) 2 MG/ML VIAL IVP PRN (12:30)
[2017-07-15] MEDS ORDERED: ONDANSETRON 4 MG/2 ML (SDV) Z0FRAN IVP PRN (12:30)
[2017-07-15] MEDS ORDERED: MEASLES,MUMPS,RUBELLA 1 EA INJ SC SCH (12:30)
[2017-07-15] MEDS ORDERED: IBUPROFEN 600 MG (MOTRIN) TAB PO SCH (12:30)
[2017-07-15] MEDS ORDERED: KETOROLAC 30 MG/ML VIAL IVP SCH (13:00)
[2017-07-15 13:36] VITALS: BP 96/67
[2017-07-15] MEDS: HYDROcodone/APAP 5 MG/325 MG (LORTAB) TAB PO PRN ×2 (15:45→22:47)
[2017-07-15] MEDS: CATHETER FLUSH 10 ML SYR IV SCH (15:56)
--- NOTE | 2017-07-15 16:27 | Discharge Inst-Women's Service ---
Discharge Inst-Women's Serv Depart Medication/Instructions New, Converted or Re-Newed RX: RX on Chart Consults/Follow Up Additional Follow Up: Yes Orders/Referrals Dr. Beyer in 7-10 days and in [address] Levin Activity Activity: Activity as Tolerated Driving Instructions: No Driving for 1 Week NO SMOKING: NO SMOKING Nothing Inside Vagina: No Douching, No Proberta, No Tampons Diet Discharge Diet: No Restrictions Symptoms to Report to : Bleeding Excessive, Pain Increased, Fever Over 101 Degrees F, Vaginal Bleeding Increase, Questions/Concerns For Any Problems or Questions: Contact Your Physician Skin/Wound Care Infection Signs and Symptoms: Increased Redness, Foul Odor of Wound, Increased Drainage, Skin Itchy or Has a Rash, Increased Swelling, Temperature Above 101 F Operative Area Clean and Dry: Keep Incision Clean/Dry Stitches/Kelsie/Dermabond: Dermabond, Care of Stitches Bathing Instructions: CORNEL Haile DO Jul 15, 2017 4:27 pm
[2017-07-15] MEDS ORDERED: ACHD5005 PO (16:28)
[2017-07-15] MEDS ORDERED: IBUP-1773 PO (16:28)
[2017-07-15] MEDS ORDERED: DOCU100C37 PO (16:28)
[2017-07-15 17:25] VITALS: BP 104/73
[2017-07-15] MEDS: KETOROLAC 30 MG/ML VIAL IVP SCH (18:26)
--- NOTE | 2017-07-15 19:06 | OPERATIVE REPORT ---
DATE OF SERVICE: PREOPERATIVE DIAGNOSES: 1. A 27-year-old G4, P2, at 39 weeks and 2 days' gestation. 2. Malpresentation. 3. Cord presentation. POSTOPERATIVE DIAGNOSES: 1. A 27-year-old G4, P2, at 39 weeks and 2 days' gestation. 2. Malpresentation. 3. Cord presentation. PROCEDURE: Primary low transverse section. SURGEON: Trenton Beyer DO DISTANCE LEARNING COORDINATOR: EVA Hoffmann ANESTHESIA: Spinal. ESTIMATED BLOOD LOSS: 800 mL. URINE OUTPUT: 250 mL clear at the end of the procedure. FLUIDS: 1700 mL of lactate Ringer's solution. FINDINGS: Live female infant, weighing 7 pounds 7 ounces, Apgars of 9 and 9. Grossly normal appearing uterus, bilateral fallopian tubes and ovaries. SPECIMEN SENT: None. INDICATIONS FOR PROCEDURE: This is a 27-year-old female who as a consultation to my service after seeing Dr. Levin for her care. The patient was found to be in breech presentation approximately 3 to 4 weeks ago; however, this did convert to vertex spontaneously on its own. However, when she presented in labor for induction this morning, was found to be in the left transverse presentation, spine down with the cord presentation. She was also found to be stanislav every 7 to 10 minutes and 5 cm dilated. Due to concern for spontaneous rupture of membranes and cord prolapse, I discussed with her urgently proceeding with a delivery. Risks of the procedure were discussed with the patient in detail including risk of bleeding, infection, damage to surrounding structures including the infant, risk for possible need for reoperation, risk for blood transfusion, hysterectomy and loss of fertility and even . After everything was discussed with the patient, consent was obtained in the preoperative area and the patient was taken to the operating room. OPERATIVE REPORT IN DETAIL: Once in the operating room, spinal anesthesia was found to be adequate. She was placed in supine position with leftward tilt, prepped and draped in normal sterile fashion. A timeout was performed. A Pfannenstiel skin incision was then made with a knife and carried down to the underlying fascia using Bovie cautery. Fascial incision was extended laterally using Bovie cautery. Superior aspect of fascial incision was then grasped with Moody clamps, tented up and dissected off the underlying rectus muscles. The inferior aspect of the fascial incision was then grasped with Moody clamps, tented up and dissected off the underlying rectus muscles. The rectus muscles were then dissected down the midline using Thurman scissors. This exposed the peritoneum, which I entered bluntly and extended using blunt traction. Nathaniel ring retractor was placed within the peritoneal incision, which offered excellent lateral sidewall retraction. I then make a low transverse incision to the vesicouterine peritoneum using a knife and bluntly dissected off the lower uterine segment, which was not very well thinned out due to no presenting part into the pelvis. I then proceed with my myotomy until membranes were visualized, at which point I extended the uterine incision laterally and superiorly using bandage scissors, at which point rupture of membranes occurs and clear fluid was noted. The infant was found in the left transverse presentation spine down. I have performed an internal version by guiding the infant's head down to the incision, which then it was delivered through the incision with gentle fundal pressure. The nares and oropharynx were bulb suctioned. Anterior and posterior shoulders were delivered. Infant was then brought to the operative field. The cord was doubly clamped and cut and was handed off to Dr. Levin who was present for delivery. Cord blood was collected, 3-vessel cord with intact placenta delivered spontaneously thereafter. IV Pitocin was initiated to facilitate uterine contraction. Uterine fundus became firmer with bimanual massage. The uterus was then exteriorized and cleared of endometrial clots and debris. I then proceeded with closing the uterine incision using 0 Vicryl suture in running locked fashion. Second layer of imbricating 0 Monocryl was placed. Excellent hemostasis was noted after doing this. I then inspected bilateral tubes and ovaries, which appeared to be grossly normal, placed the uterus back within the pelvis and copiously irrigated the pelvis using normal saline. Once again, there was no active bleeding noted from any of my dissection planes. I placed Interceed antiadhesive over my low transverse incision and proceed with closing the peritoneum using 3-0 Vicryl suture in running fashion. The rectus muscles were reapproximated using 3-0 Vicryl suture in interrupted fashion. The fascia was reapproximated using 0 Vicryl suture in running fashion. The subcutaneous tissue was reapproximated using 3-0 plain in an interrupted subcutaneous stitch and skin reapproximated using 4-0 Monocryl in running subcuticular. Dermabond was applied to incision. Sterile dressing with adhesive white tape. The patient tolerated the procedure well and sent to recovery area in stable condition. Lap and sponge counts were correct at the end of the procedures. Instrument counts were correct as well. A 1 g of Ancef was given preoperatively for infection prophylaxis. Job ID: [id number] DocumentID: [id number] Dictated Date: 07/15/2017 12:29:03 Tuberculosis Specialist Date: 07/15/2017 19:05:25 Dictated By: TRENTON BEYER DO
[2017-07-15 20:03] VITALS: BP 104/67
[2017-07-15] MEDS: DOCUSATE SODIUM 100 MG (COLACE) CAP PO SCH (20:03)
[2017-07-16 00:53] VITALS: BP 98/67
[2017-07-16] MEDS: KETOROLAC 30 MG/ML VIAL IVP SCH ×2 (00:53→08:13)
[2017-07-16] MEDS: CATHETER FLUSH 10 ML SYR IV SCH ×2 (00:53→08:13)
[2017-07-16 05:13] VITALS: BP 96/69
[2017-07-16] MEDS: HYDROcodone/APAP 5 MG/325 MG (LORTAB) TAB PO PRN ×3 (05:13→21:54)
[2017-07-16 06:06] LABS: BASOPHILS % (AUTO) 0 % (0-10); EOSINOPHILS # (AUTO) 0.1 10^3/uL (0.0-0.3); EOSINOPHILS % (AUTO) 0 % (0-10); HEMATOCRIT 26 % (35-52); HEMOGLOBIN 8.9 G/DL (11.5-16.0); LYMPHOCYTES # (AUTO) 1.2 X 10^3 (1.0-4.0); LYMPHOCYTES % (AUTO) 10 % (12-44); MEAN CORPUSCULAR HEMOGLOBIN 29 PG (25-34); MEAN CORPUSCULAR HGB CONC 34 G/DL (32-36); MEAN CORPUSCULAR VOLUME 87 FL (80-99); MEAN PLATELET VOLUME 10.5 FL (7.4-10.4); MONOCYTES # (AUTO) 0.9 X 10^3 (0.0-1.0); MONOCYTES % (AUTO) 7 % (0-12); NEUTROPHILS # (AUTO) 10.8 X 10^3 (1.8-7.8); NEUTROPHILS % (AUTO) 83 % (42-75); PLATELET COUNT 130 10^3/uL (130-400); RED BLOOD COUNT 3.04 10^6/uL (4.35-5.85); RED CELL DISTRIBUTION WIDTH 12.9 % (10.0-14.5)
[2017-07-16] MEDS ORDERED: FERROUS SULF 325 MG (IRON) TAB PO ONE (08:08)
[2017-07-16] MEDS: DOCUSATE SODIUM 100 MG (COLACE) CAP PO SCH ×2 (08:13→21:54)
[2017-07-16 08:24] VITALS: BP 98/70
--- NOTE | 2017-07-16 10:11 | Postpartum Progress Note ---
Note Note Day # 1 Subjective: Patient is without complaints. Ambulating, voiding. Tolerating a regular diet without nausea or vomiting. Normal lochia. Pain is well controlled with oral pain medications. infant Objective: Vital Sign - Last 24 Hours 07/15/17 07/15/17 07/15/17 07/15/17 10:30 11:00 11:21 13:36 Temp 97.1 Pulse 105 116 88 74 Resp 18 B/P (MAP) 130/76 (94) 117/73 (88) 125/77 (93) 96/67 (77) Pulse Ox 99 O2 Delivery Room Air Room Air Room Air Room Air 07/15/17 07/15/17 07/16/17 07/16/17 17:25 20:03 00:53 05:13 Temp 98.7 98.8 98.6 98.9 Pulse 99 93 94 103 Resp 18 B/P (MAP) 104/73 (83) 104/67 (79) 98/67 (77) 96/69 (78) Pulse Ox 98 97 96 97 O2 Delivery Room Air Room Air Room Air Room Air Intake and Output 07/15/17 07/15/17 07/16/17 15:00 23:00 07:00 Intake Total 2050 ml 900 ml 400 ml Output Total 1050 ml 2900 ml Balance 1000 ml 900 ml -2500 ml Laboratory Tests 07/15/17 10:55: White Blood Count 9.6, Red Blood Count 3.46L, Hemoglobin 10.2L, Hematocrit 30L, Mean Corpuscular Volume 86, Mean Corpuscular Hemoglobin 30, Mean Corpuscular Hemoglobin Concent 34, Red Cell Distribution Width 12.9, Platelet Count 123L, Mean Platelet Volume 10.6H, Neutrophils (%) (Auto) 78H, Lymphocytes (%) (Auto) 13, Monocytes (%) (Auto) 8, Eosinophils (%) (Auto) 1, Basophils (%) (Auto) 0, Neutrophils # (Auto) 7.6, Lymphocytes # (Auto) 1.2, Monocytes # (Auto) 0.8, Eosinophils # (Auto) 0.1, Basophils # (Auto) 0.0 07/16/17 05:40: White Blood Count 13.0H, Red Blood Count 3.04L, Hemoglobin 8.9L, Hematocrit 26L , Mean Corpuscular Volume 87, Mean Corpuscular Hemoglobin 29, Mean Corpuscular Hemoglobin Concent 34, Red Cell Distribution Width 12.9, Platelet Count 130, Mean Platelet Volume 10.5H, Neutrophils (%) (Auto) 83H, Lymphocytes (%) (Auto) 10L, Monocytes (%) (Auto) 7, Eosinophils (%) (Auto) 0, Basophils (%) (Auto) 0, Neutrophils # (Auto) 10.8H, Lymphocytes # (Auto) 1.2, Monocytes # (Auto) 0.9, Eosinophils # (Auto) 0.1, Basophils # (Auto) 0.0 Physical Exam: General - Alert and oriented, no apparent distress Abdomen - Soft, appropriately tender to palpation, non-distended, fundus firm at umbilicus Extremities - no edema, negative Bogdan's bilaterally Incision: c/d/i Assessment: POD 1 PLTCS Recovering well, hemodynamically stable Acute blood loss anemia Plan: Routine care. Encourage breast feeding. Encourage ambulation. Ferrous sulfate supplementation. Plan for tomorrow Vitals - Labs Vital Signs - I&O Vital Signs Date Time Temp Pulse Resp B/P (MAP) Pulse Ox O2 Delivery O2 Flow Rate FiO2 07/16/17 05:13 98.9 103 18 96/69 (78) 97 Room Air 07/16/17 00:53 98.6 94 18 98/67 (77) 96 Room Air 07/15/17 20:03 98.8 93 20 104/67 (79) 97 Room Air 07/15/17 17:25 98.7 99 20 104/73 (83) 98 Room Air 07/15/17 13:36 97.1 74 18 96/67 (77) 99 Room Air 07/15/17 11:21 88 125/77 (93) Room Air 07/15/17 11:00 116 117/73 (88) Room Air 07/15/17 10:30 105 130/76 (94) Room Air I & O 07/16/17 07:00 Intake Total 3350 ml Output Total 3950 ml Balance -600 ml Labs Laboratory Tests 07/15/17 10:55: White Blood Count 9.6, Red Blood Count 3.46L, Hemoglobin 10.2L, Hematocrit 30L, Mean Corpuscular Volume 86, Mean Corpuscular Hemoglobin 30, Mean Corpuscular Hemoglobin Concent 34, Red Cell Distribution Width 12.9, Platelet Count 123L, Mean Platelet Volume 10.6H, Neutrophils (%) (Auto) 78H, Lymphocytes (%) (Auto) 13, Monocytes (%) (Auto) 8, Eosinophils (%) (Auto) 1, Basophils (%) (Auto) 0, Neutrophils # (Auto) 7.6, Lymphocytes # (Auto) 1.2, Monocytes # (Auto) 0.8, Eosinophils # (Auto) 0.1, Basophils # (Auto) 0.0 07/16/17 05:40: White Blood Count 13.0H, Red Blood Count 3.04L, Hemoglobin 8.9L, Hematocrit 26L , Mean Corpuscular Volume 87, Mean Corpuscular Hemoglobin 29, Mean Corpuscular Hemoglobin Concent 34, Red Cell Distribution Width 12.9, Platelet Count 130, Mean Platelet Volume 10.5H, Neutrophils (%) (Auto) 83H, Lymphocytes (%) (Auto) 10L, Monocytes (%) (Auto) 7, Eosinophils (%) (Auto) 0, Basophils (%) (Auto) 0, Neutrophils # (Auto) 10.8H, Lymphocytes # (Auto) 1.2, Monocytes # (Auto) 0.9, Eosinophils # (Auto) 0.1, Basophils # (Auto) 0.0 CORNEL ROPER DO Jul 16, 2017 10:11 am
[2017-07-16 12:48] VITALS: BP 96/67
[2017-07-16] MEDS ORDERED: IBUPROFEN 600 MG (MOTRIN) TAB PO SCH (13:00)
--- NOTE | 2017-07-16 13:18 | Anesthesia-Regional Post-Op ---
Regional Patient Condition Mental Status: Alert, Oriented x3 Circulation: Same as Pre-Op Headache: Absent Sensation: Full Recovery Motor Block: Absent Post Op Complications Complications None Follow Up Care/Instructions Patient Instructions None needed. Anesthesia/Patient Condition Patient is doing well, no complaints, stable vital signs, no apparent adverse anesthesia problems. No complications reported per nursing. D/C home per [facility] Criteria: No BLAZE FORD CRNA Jul 16, 2017 13:18
[2017-07-16] MEDS: IBUPROFEN 600 MG (MOTRIN) TAB PO SCH ×2 (15:45→21:54)
[2017-07-16 20:00] VITALS: BP 105/71
[2017-07-17 00:30] VITALS: BP 98/69
[2017-07-17 04:48] VITALS: BP 102/66
[2017-07-17] MEDS: HYDROcodone/APAP 5 MG/325 MG (LORTAB) TAB PO PRN (04:48)
[2017-07-17 06:31] VITALS: BP 102/66
[2017-07-17] MEDS: IBUPROFEN 600 MG (MOTRIN) TAB PO SCH ×3 (06:31→11:43)
[2017-07-17] MEDS ORDERED: FERROUS SULF 325 MG (IRON) TAB PO SCH (07:00)
[2017-07-17] MEDS: DOCUSATE SODIUM 100 MG (COLACE) CAP PO SCH (09:42)
--- NOTE | 2017-07-17 10:19 | Postpartum Progress Note ---
Note Note Day #2 Subjective: Patient is without complaints. Ambulating, voiding. Tolerating a regular diet without nausea or vomiting. Normal lochia. Pain is well controlled with oral pain medications. Objective: Vital Sign - Last 24 Hours 07/16/17 07/16/17 07/17/17 07/17/17 12:48 20:00 00:30 06:31 Temp 98.8 98.4 98.3 97.5 Pulse 99 93 90 80 Resp 18 18 18 18 B/P (MAP) 96/67 (77) 105/71 (82) 98/69 (79) 102/66 (78) Pulse Ox 100 98 99 98 O2 Delivery Room Air Room Air Room Air Room Air Physical Exam: General - Alert and oriented, no apparent distress Abdomen - Soft, appropriately tender to palpation, non-distended, fundus firm at umbilicus Extremities - no edema, negative Bogdan's bilaterally Incision: c/d/i Assessment: PPD 2 PLTCS Acute blood loss anemia [] Plan: Routine care. Encourage breast feeding. Encourage ambulation. Ferrous sulfate supplementation. Plan for discharge todayt Vitals - Labs Vital Signs - I&O Vital Signs Date Time Temp Pulse Resp B/P (MAP) Pulse Ox O2 Delivery O2 Flow Rate FiO2 07/17/17 06:31 97.5 80 18 102/66 (78) 98 Room Air 07/17/17 00:30 98.3 90 18 98/69 (79) 99 Room Air 07/16/17 20:00 98.4 93 18 105/71 (82) 98 Room Air 07/16/17 12:48 98.8 99 18 96/67 (77) 100 Room Air CORNEL ROPER DO Jul 17, 2017 10:19 am
[2017-07-17 11:41] VITALS: BP 108/71
[2017-07-17 13:30] VITALS: BP 108/71
== END 2017-07-17 13:30 | disposition home or self-care (01) | DRG 765 ==
LOC: LDRP 10:07 → 3RD 14:59
PROVIDERS: ADMIT Family Medicine; ATTEND Family Medicine
PROC: 10D00Z1 Extraction of Products of Conception, Low, Open Approach (ICD-10-PCS; principal; 2017-07-15 11:23)
DX: O32.2XX0 Maternal care for transverse and oblique lie, not applicable or unspecified (principal); O69.0XX0 Labor and delivery complicated by prolapse of cord, not applicable or unspecified; O90.81 Anemia of the puerperium; D62 Acute posthemorrhagic anemia; Z3A.39 39 weeks gestation of pregnancy; Z37.0 Single live birth
CPT/HCPCS: 36415; 85025; 86850; 86900; 86901; 99212

== ENCOUNTER → 2017-09-04 | Outpatient (CLI) | payer MEDICAID ==
[~2017-09-04] MED LIST changes: +ACHD5005 PO; +DOCU100C37 PO; +IBUP-1773 PO
--- NOTE | 2017-09-04 17:25 | Diagnostic Imaging Report ---
EXAMINATION: Pelvic ultrasound. INDICATION: Vaginal bleeding. There are no prior pelvic ultrasound examinations available for comparison. FINDINGS: The uterus is nongravid and not enlarged measuring 8.9 x 6.5 x 4.9 cm. The endometrial lining is not thickened measuring 4 mm. There is no focal mass involving the uterus to suggest a fibroid. Both ovaries are identified. Each ovary does contain a few subcentimeter follicles. There is good blood flow to each ovary and there is no sign of torsion. There is no solid pelvic mass or free fluid collection noted. IMPRESSION: There is no evidence for an acute pelvic abnormality. In particular, the endometrium does not appear to be abnormally thickened and there is no abnormality to account for the patient's vaginal bleeding. Clinical follow-up is recommended. Dictated by: Dictated on workstation # [id number]
== END ==
LOC: RAD 15:54
PROVIDERS: ATTEND Family Medicine
DX: N93.9 Abnormal uterine and vaginal bleeding, unspecified (principal)
CPT/HCPCS: 76830; 76856

== ENCOUNTER 2021-12-12 18:18 | Emergency (ER) | payer MEDICAID ==
[~2021-12-12] VITALS: Ht 160 cm; Wt 62.1 kg
[2021-12-12 18:56] LABS: BILIRUBIN,URINE NEGATIVE (NEGATIVE); CLARITY,URINE CLEAR; COLOR,URINE YELLOW; GLUCOSE, URINE (UA) NEGATIVE (NEGATIVE); KETONES,URINE NEGATIVE (NEGATIVE); LEUKOCYTE ESTERASE ,URINE NEGATIVE (NEGATIVE); NITRITE,URINE NEGATIVE (NEGATIVE); PROTEIN,URINE NEGATIVE (NEGATIVE)
[2021-12-12 19:02] LABS: BACTERIA,URINE NEGATIVE /HPF; SQUAMOUS EPITHELIAL CELL,UR 0-2 /HPF
[2021-12-12 19:38] LABS: BASOPHILS % (AUTO) 1 % (0-10); EOSINOPHILS # (AUTO) 0.1 10^3/uL (0.0-0.3); EOSINOPHILS % (AUTO) 2 % (0-10); HEMATOCRIT 39 % (35-52); HEMOGLOBIN 13.5 g/dL (11.5-16.0); LYMPHOCYTES # (AUTO) 1.7 10^3/uL (1.0-4.0); LYMPHOCYTES % (AUTO) 22 % (12-44); MEAN CORPUSCULAR HEMOGLOBIN 33 pg (25-34); MEAN CORPUSCULAR HGB CONC 35 g/dL (32-36); MEAN CORPUSCULAR VOLUME 95 fL (80-99); MEAN PLATELET VOLUME 9.8 fL (9.0-12.2); MONOCYTES # (AUTO) 0.6 10^3/uL (0.0-1.0); MONOCYTES % (AUTO) 8 % (0-12); NEUTROPHILS # (AUTO) 5.2 10^3/uL (1.8-7.8); NEUTROPHILS % (AUTO) 68 % (42-75); PLATELET COUNT 174 10^3/uL (130-400); WHITE BLOOD COUNT 7.7 10^3/uL (4.3-11.0)
[2021-12-12] MEDS ORDERED: LACTATED RINGERS 1,000 ML IV ONE (19:45)
[2021-12-12 19:49] LABS: CALCIUM 9.2 MG/DL (8.5-10.1); CREATININE SERUM 0.74 MG/DL (0.60-1.30); MAGNESIUM 1.7 MG/DL (1.6-2.4); POTASSIUM 3.8 MMOL/L (3.6-5.0)
--- NOTE | 2021-12-12 20:36 | ED General ---
General Chief Complaint: General Problems/Pain Stated Complaint: LOWER BACK PAIN,MCCARTNEY,CRAMPING, 9 WEEKS Nursing Triage Note: C/O LOW ABDOMINAL ADN BACK PAIN THAT STARTED ON SATURDAY, NOW ALSO HAVING A HEADACHE. STATES SHE IS WIT MCCARTNEY DUE DATE OF JUL 10 2022. LMP WAS 09/28/21.TYLENOL AT HOME FOR PAIN. DENIES N/V. WAS SEEN AT [facility] THIS AFTERNOON AND TESTED FOR UTI. TESTING INDICATED SHE WAS NEGITIVE FOR INFECTION (PER PATIENT) Source of Information: Patient Exam Limitations: No Limitations History of Present Illness Date Seen by Provider: Dec 12, 2021 Time Seen by Provider: 18:24 Initial Comments This 31-year-old young lady presents to the emergency room in her first trimester with complaints of lower abdominal cramping, headache, and low back ache. She did not feel it was necessary to come to the emergency room but was urged by multiple people to come be evaluated. She has not yet established with an transmitter operator for this but has an appointment with Dr. Kramer this week. She denies any vaginal bleeding or discharge. She denies risk factors for sexually transmitted infections. She has been in a long-term monogamous relationship. She had 1 episode of chlamydia about 12 years ago. She is prone to yeast infections and bacterial vaginosis but has no vaginal discharge sugg estive of these infections today. She is not experiencing any significant nausea or vomiting. She is afebrile. Allergies and Home Medications Allergies Coded Allergies: No Known Drug Allergies (Verified , 02/03/09) Patient Home Medication List Home Medication List Reviewed: Yes Docusate Sodium (Docusate Sodium) 100 Mg Capsule, 100 MG PO BID PRN for CONSTIPATION-1ST LINE Prescribed by: CORNEL ROPER on 07/15/17 162 Famotidine (Pepcid) 40 Mg Tablet, 40 MG PO BID, (Reported) Entered as Reported by: ALOK MADSEN on 06/24/17 1453 Hydrocodone Bit/Acetaminophen (Lortab 5 Mg Tablet) 1 Tab Tab, 1-2 TAB PO Q4H PRN for PAIN-MODERATE Prescribed by: CORNEL ROPER on 07/15/17 162 Ibuprofen (Ibuprofen) 600 Mg Tablet, 600 MG PO Q6H Prescribed by: CORNEL ROPER on 07/15/17 1628 Vit W-Ca,Fe,FA(<1 mg) ( Vitamins) 1 Each Tablet, 1 EACH PO DAILY, (Reported) Entered as Reported by: ALOK MADSEN on 06/24/17 4470 Review of Systems Review of Systems Constitutional: no symptoms reported EENTM: no symptoms reported Respiratory: no symptoms reported Cardiovascular: no symptoms reported Gastrointestinal: see HPI Genitourinary: see HPI : Yes Expected Date of Delivery: Jul 10, 2022 Musculoskeletal: see HPI Skin: no symptoms reported Psychiatric/Neurological: See HPI Hematologic/Lymphatic: No Symptoms Reported Past Borwjqz-Wqjzzh-Baeeem Hx Patient Social History Tobacco Use?: Yes Tobacco type used: Cigarettes Smoking Status: Former Smoker Use of E-Cig and/or Vaping dev: No Substance use?: No Alcohol Use?: No Pt feels they are or have been: No Immunizations Up To Date Tetanus Booster (TDap): More than 5yrs PED Vaccines UTD: Yes Influenza Vaccine Up-to-Date: No; Not Current First/Initial COVID19 Vaccinat: DECLINED Seasonal Allergies Seasonal Allergies: No Past Medical History Surgeries: Yes Section Respiratory: No Cardiac: No (HTN IN 1ST ) Neurological: No Expected Date of Delivery: Jul 10, 2022 Last Menstrual Period: September 28, 2021 Reproductive Disorders: No Female Reproductive Disorders: Denies Sexually Transmitted Disease: No Genitourinary: No Gastrointestinal: Yes Chronic Constipation Musculoskeletal: No Endocrine: No HEENT: No Loss of Vision: Denies Hearing Impairment: Denies Cancer: No Psychosocial: Yes Anxiety Integumentary: No Blood Disorders: No Family Medical History Alcoholism 19 FATHER (paternal) Cancer 19 FATHER (breast cancer paternal grandmother) 19 MOTHER (maternal grandmother lung) Congestive heart failure 19 MOTHER (maternal grandomother) Family history: Cardiovascular disease 19 MOTHER (maternal grandfather) Family history: Diabetes mellitus 19 MOTHER (great grandfather type 2) Family history: Osteoporosis 19 MOTHER (grandmother ) Family history: Thyroid disorder 19 MOTHER (mother) Hearing loss 19 MOTHER (grandmother) History of - anemia 19 MOTHER (maternal grandmother) History of drug abuse 19 FATHER (dad ) Hypercholesterolemia 19 MOTHER (grandfather) Myocardial infarction 19 MOTHER (grandfather) Psychotic disorder 19 FATHER (father) Stroke 19 FATHER (great grandmother??) No Family History of: Abdominal aortic aneurysm Derik's disease Aphasia Cancer of colon Cataract Chest pain Congenital heart disease Cystic fibrosis Dementia Dysphagia Family history: Allergy Family history: Alzheimer's disease Family history: Arthritis Family history: Asthma Family history: Breast disease Family history: Coronary thrombosis Family history: Gastrointestinal disease Family history: Glaucoma Family history: Hypertension Headache Heart disease Hereditary disease History of - disorder History of - respiratory disease Human immunodeficiency virus (HIV) seropositivity Infertile Kidney disease Malignant neoplasm of lung Parkinson's disease Prostate cancer Seizure disorder Tuberculosis Visual impairment Heart Disease, Cancer Physical Exam Vital Signs Vital Signs - First Documented 12/12/21 18:32 Temp 37.0 Pulse 79 Resp 16 B/P (MAP) 102/68 (79) Pulse Ox 98 O2 Delivery Room Air Capillary Refill : Less Than 3 Seconds Height, Weight, BMI Height: 5'3.00" Weight: 172lbs. 4.0oz. 78.399840jd; 24.00 BMI Method:Stated General Appearance: No Apparent Distress, WD/WN HEENT: PERRL/EOMI, Normal ENT Inspection Neck: Normal Inspection Respiratory: Lungs Clear, Normal Breath Sounds, No Accessory Muscle Use Cardiovascular: Regular Rate, Rhythm, No Edema, No Murmur Gastrointestinal: Normal Bowel Sounds, Non Tender, Soft Back: Normal Inspection, No Vertebral Tenderness Extremity: Normal Inspection, No Pedal Edema Neurologic/Psychiatric: Alert, Oriented x3, No Motor/Sensory Deficits, Normal Mood/Affect, irrigation system operator II-XII Norm as Tested Skin: Normal Color, Warm/Dry Progress/Results/Core Measures Suspected Sepsis SIRS Temperature: Pulse: 79 Respiratory Rate: 16 Laboratory Tests 12/12/21 18:55: White Blood Count 7.7 Blood Pressure 102 /68 Mean: 79 Laboratory Tests 12/12/21 18:55: Creatinine 0.74, Platelet Count 174 Results/Orders Lab Results Laboratory Tests Test 12/12/21 18:44 12/12/21 18:55 Range/Units Urine Color YELLOW Urine Clarity CLEAR Urine pH 6.0 5-9 Urine Specific [place] >=1.030 1.016-1.022 Urine Protein NEGATIVE NEGATIVE Urine Glucose (UA) NEGATIVE NEGATIVE Urine Ketones NEGATIVE NEGATIVE Urine Nitrite NEGATIVE NEGATIVE Urine Bilirubin NEGATIVE NEGATIVE Urine Urobilinogen 0.2 < = 1.0 MG/DL Urine Leukocyte Esterase NEGATIVE NEGATIVE Urine RBC (Auto) NEGATIVE NEGATIVE Urine RBC NONE /HPF Urine WBC NONE /HPF Urine Squamous Epithelial Cells 0-2 /HPF Urine Renal Epithelial Cells NONE /HPF Urine Crystals NONE /LPF Urine Bacteria NEGATIVE /HPF Urine Casts NONE /LPF Urine Mucus NEGATIVE /LPF Urine Culture Indicated NO White Blood Count 7.7 4.3-11.0 10^3/uL Red Blood Count 4.10 3.80-5.11 10^6/uL Hemoglobin 13.5 11.5-16.0 g/dL Hematocrit 39 35-52 % Mean Corpuscular Volume 95 80-99 fL Mean Corpuscular Hemoglobin 33 25-34 pg Mean Corpuscular Hemoglobin Concent 35 32-36 g/dL Red Cell Distribution Width 12.2 10.0-14.5 % Platelet Count 174 130-400 10^3/uL Mean Platelet Volume 9.8 9.0-12.2 fL Immature Granulocyte % (Auto) 1 % Neutrophils (%) (Auto) 68 42-75 % Lymphocytes (%) (Auto) 22 12-44 % Monocytes (%) (Auto) 8 0-12 % Eosinophils (%) (Auto) 2 0-10 % Basophils (%) (Auto) 1 0-10 % Neutrophils # (Auto) 5.2 1.8-7.8 10^3/uL Lymphocytes # (Auto) 1.7 1.0-4.0 10^3/uL Monocytes # (Auto) 0.6 0.0-1.0 10^3/uL Eosinophils # (Auto) 0.1 0.0-0.3 10^3/uL Basophils # (Auto) 0.0 0.0-0.1 10^3/uL Immature Granulocyte # (Auto) 0.0 0.0-0.1 10^3/uL Sodium Level 140 135-145 MMOL/L Potassium Level 3.8 3.6-5.0 MMOL/L Chloride Level 106 98-107 MMOL/L Carbon Dioxide Level 22 21-32 MMOL/L Anion Gap 12 5-14 MMOL/L Blood Urea Nitrogen 15 7-18 MG/DL Creatinine 0.74 0.60-1.30 MG/DL Estimat Glomerular Filtration Rate 109 BUN/Creatinine Ratio 20 Glucose Level 79 70-105 MG/DL Calcium Level 9.2 8.5-10.1 MG/DL Magnesium Level 1.7 1.6-2.4 MG/DL Human Chorionic Gonadotropin, Quant [id number] H <5 MIU/ML My Orders Orders - JEFFREY REECE MD Ua Culture If Indicated (12/12/21 18:24) Basic Metabolic Panel (12/12/21 19:33) Cbc With Automated Diff (12/12/21 19:33) Hcg,Quantitative (12/12/21 19:33) Magnesium (12/12/21 19:33) Ed Iv/Invasive Line Start (12/12/21 19:33) Lactated Ringers (Lr 1000 Ml Iv Solution (12/12/21 19:45) Medications Given in ED Vital Signs/I&O 12/12/21 12/12/21 18:32 20:41 Temp 37.0 Pulse 79 77 Resp 16 16 B/P (MAP) 102/68 (79) 115/75 Pulse Ox 98 100 O2 Delivery Room Air Room Air 12/13/21 00:00 Intake Total 1000 ml Balance 1000 ml Capillary Refill : Less Than 3 Seconds Blood Pressure Mean: 79 Progress Note : Progress Note Work-up was unremarkable. hCG level is appropriate. Patient was hydrated with IV fluids as urinalysis demonstrated concentrated urine. Exam was unremarkable. Patient was offered pelvic exam, but she prefers to wait for her obstetrical appointment. See discharge instructions for further discussion. Departure Impression Primary Impression: Abdominal cramping affecting Additional Impression: Low back pain Qualified Codes: M54.50 - Low back pain, unspecified Disposition: 01 HOME, SELF-CARE Condition: Stable Departure-Patient Inst. Decision time for Depature: 20:32 Referrals: EMILY KRAMER MD (PCP/Family) Primary Care Physician Patient Instructions: Low Back Pain ED, Stomach Pain in Early Add. Discharge Instructions: Drink plenty of clear liquids to stay well-hydrated and eat a well-balanced diet. To prevent constipation eat plenty of fruits, vegetables, and whole grains. Avoid excessive meats, cheeses, processed foods, and fast foods. If you have problems with constipation despite preventive dietary measures, you may use Colace stool softener or MiraLAX occasionally to help alleviate constipation. Be sure to stay well-hydrated while using these constipation treatments. You may continue taking Tylenol (acetaminophen) up to 1000 mg every 6 hours as needed for general aches and pains. For cramping you may additionally try Benadryl (diphenhydramine) 25 to 50 mg every 6 hours as needed. This may cause significant drowsiness, so use with caution. Return to the emergency room if you develop escalating abdominal or pelvic pain, vaginal bleeding, fever, or other escalating or new significant symptoms. All discharge instructions reviewed with patient and/or family. Voiced understanding. Work/School Note: Work Release Form Date Seen in the Emergency Department: Dec 12, 2021 Return to Work: Dec 13, 2021 Other Restrictions Listed Below: No independent lifting over 25 pounds until released by provider. Restrictions: Avoid excessive lifting, bending, pushing, or stooping. Copy Copies To 1: EMILY KRAMER MD, JOSHUA T MD Dec 12, 2021 20:36
[2021-12-12 20:41] VITALS: BP 115/75
== END 2021-12-12 20:41 | disposition home or self-care (01) ==
LOC: EDUNIT# 18:18 → ER 18:21
DX: O99.891 Other specified diseases and conditions complicating pregnancy (principal); M54.50 Low back pain, unspecified; O26.891 Other specified pregnancy related conditions, first trimester; R10.30 Lower abdominal pain, unspecified; O99.331 Smoking (tobacco) complicating pregnancy, first trimester; F17.210 Nicotine dependence, cigarettes, uncomplicated; Z3A.00 Weeks of gestation of pregnancy not specified; Z28.310 Unvaccinated for COVID-19
CPT/HCPCS: 36415; 80048; 81000; 83735; 84702; 85025

== ENCOUNTER 2022-06-01 14:12 | Outpatient (CLI) | payer MEDICAID ==
[~2022-06-01] VITALS: Ht 160 cm; Wt 81.3 kg
[2022-06-01 14:47] VITALS: BP 111/72
[2022-06-01] MEDS ORDERED: CALC500T7 PO (14:52)
[2022-06-01] MEDS ORDERED: FAMO-119 PO (14:52)
[2022-06-01] MEDS ORDERED: PREN-37 PO (14:52)
[2022-06-01 15:55] VITALS: BP 111/72
--- NOTE | 2022-06-04 08:16 | Physician Query-Final Dx ---
Clinic Account Progress/Dx Physician Query: Please give diagnosis Please include # weeks gestation Date of Service Jun 01, 2022 at 14:12 BRITTANY,MayJun 04, 2022 08:16
== END 2022-06-01 15:55 | disposition home or self-care (01) ==
LOC: WSo 14:12 → LDRP 14:12 → WSo 15:55
PROVIDERS: ATTEND Family Medicine
DX: O62.9 Abnormality of forces of labor, unspecified (principal); Z3A.00 Weeks of gestation of pregnancy not specified
CPT/HCPCS: 87210

== ENCOUNTER 2022-06-21 05:29 | Outpatient (CLI) | payer MEDICAID ==
[~2022-06-21] VITALS: Ht 160 cm; Wt 80.9 kg
[~2022-06-21 05:29] MED LIST changes: +CALC500T7 PO; +FAMO-119 PO; +PREN-37 PO
[2022-06-21] MEDS ORDERED: DOXY25TA35 PO (13:22)
== END 2022-06-21 13:38 | disposition home or self-care (01) ==
LOC: PREOP 05:29
PROVIDERS: ATTEND Obstetrics & Gynecology
DX: Z01.818 Encounter for other preprocedural examination (principal)

== ENCOUNTER 2022-06-28 05:39 | Inpatient (IN) | payer MEDICAID ==
[2022-06-28] VITALS (10 sets, daily range): BP systolic 93–123; BP diastolic 59–79
[~2022-06-28] VITALS: Ht 160 cm; Wt 82.4 kg
[~2022-06-28 05:39] MED LIST changes: +DOXY25TA35 PO
--- OUTSIDE RECORDS SUMMARY | 2022-06-28 05:47 | XMS REPORT | Clinical Summary ---
Demographics Home Phone Preferred Language Unknown Marital Status Unknown [employer] Affiliation Unknown Race White Ethnic Group Unknown Author Author [facility] Organization [facility] Address Unknown Phone Unavailable Care Team Providers Care Program Management Analyst Name Role Phone PCP Unavailable Allergies Not on File Medications Not on file Active Problems Not on file Social History Date Tobacco Use Types Packs/Day Years Used Smoking Tobacco: Never Assessed Sex Assigned at Date Recorded Not on file Last Filed Vital Signs Not on file Plan of Treatment Health Maintenance Due Date Last Done Comments COVID-19 Vaccine (#1) 1988 Varicella Vaccines (1 of 1989 2 - 2-dose childhood series) Hepatitis C Screening 2006 DTaP,Tdap,and Td Vaccines 2007 (1 - Tdap) MMR Vaccines-Adult 2007 Cervical Cancer Screening 2009 Influenza Vaccine (#1) 2022 HIB Vaccines Aged Out No longer eligible based on patient's age to complete this topic IPV Vaccines Aged Out No longer eligible based on patient's age to complete this topic Meningococcal Vaccine Aged Out No longer eligib le based on patient's age to complete this topic Pneumo-Vaccine: At Risk Aged Out No longer elig ible based on patient's age to 6-64 Yrs complete this topic Rotavirus Vaccines Aged Out No longer eligible based on patient's age to complete this topic Results Not on filefrom Last 3 Months
[2022-06-28] MEDS ORDERED: LACTATED RINGERS 1,000 ML IV PRN ×2 (06:00)
[2022-06-28] MEDS ORDERED: CITRIC ACID/SOB CIT (BICITRA) 30 ML UDC PO ONE (06:00)
[2022-06-28] MEDS ORDERED: ceFAZolin INJECTION 2,000 MG in NS (IVPB) 50 ML IV ONE (06:00)
[2022-06-28] MEDS ORDERED: METOCLOPRAMIDE INJ 10 MG/2 ML (REGLAN) IV ONE (06:00)
[2022-06-28] MEDS ORDERED: FAMOTIDINE 20MG/2ML IV (PEPCID) IV ONE (06:00)
[2022-06-28] MEDS ORDERED: ceFAZolin INJECTION 2,000 MG ONE (06:01)
[2022-06-28] MEDS ORDERED: FAMOTIDINE 20MG/2ML IV (PEPCID) ONE (06:01)
[2022-06-28] MEDS ORDERED: NS (IVPB) 50 ML ONE (06:01)
[2022-06-28] MEDS ORDERED: CITRIC ACID/SOB CIT (BICITRA) 30 ML UDC ONE (06:01)
[2022-06-28] MEDS ORDERED: METOCLOPRAMIDE INJ 10 MG/2 ML (REGLAN) ONE (06:01)
[2022-06-28 06:41] LABS: BASOPHILS % (AUTO) 0 % (0-10); EOSINOPHILS # (AUTO) 0.1 10^3/uL (0.0-0.3); EOSINOPHILS % (AUTO) 1 % (0-10); HEMATOCRIT 30 % (35-52); LYMPHOCYTES # (AUTO) 1.8 10^3/uL (1.0-4.0); LYMPHOCYTES % (AUTO) 27 % (12-44); MEAN CORPUSCULAR HEMOGLOBIN 28 pg (25-34); MEAN CORPUSCULAR HGB CONC 33 g/dL (32-36); MEAN CORPUSCULAR VOLUME 84 fL (80-99); MEAN PLATELET VOLUME 10.9 fL (9.0-12.2); MONOCYTES # (AUTO) 0.7 10^3/uL (0.0-1.0); MONOCYTES % (AUTO) 10 % (0-12); NEUTROPHILS # (AUTO) 4.2 10^3/uL (1.8-7.8); NEUTROPHILS % (AUTO) 62 % (42-75); PLATELET COUNT 129 10^3/uL (130-400); WHITE BLOOD COUNT 6.8 10^3/uL (4.3-11.0)
[2022-06-28] MEDS ORDERED: fentaNYL INJ 100 MCG/2 ML AMP ONE (07:06)
[2022-06-28] MEDS ORDERED: OXYTOCIN PRE-MIX DRIP 500 ML IV ONE ×2 (07:12→07:51)
[2022-06-28] MEDS ORDERED: ONDANSETRON 4 MG/2 ML (SDV) Z0FRAN ONE (07:12)
--- NOTE | 2022-06-28 07:27 | History & Physical-OB ---
OB - Chief Complaint & HPI Date/Time Date of Admission: Date of Admission: Jun 28, 2022 at 05:39 Date seen by a Provider: Jun 28, 2022 Time Seen by a Provider: 07:10 Chief Complaint/History OB-Reason for Admission/Chief: Section Hx : 5 Hx Para: 3 Expected Date of Delivery: Jul 05, 2022 Gestational Age in Weeks: 39 Gestational Age in Days: 0 Indication for : desires repeat Admission Nurse Assessment Rev: Yes Other See [facility] PNL Allergies and Home Medications Allergies Coded Allergies: No Known Drug Allergies (Verified , 06/21/22) Patient Home Medication List Home Medication List Reviewed: Yes Calcium Carbonate (Tums) 200 Mg Calcium (500 Mg) Tab.chew, 200 MG PO TID PRN for INDIGESTION, (Reported) Entered as Reported by: THOMAS JORDAN on 06/01/22 145 Doxylamine Succinate (Unisom Sleep Aid) 25 Mg Tablet, 25 MG PO HS, (Reported) Entered as Reported by: TARUN PATEL on 06/21/22 1322 Famotidine (Pepcid) 20 Mg Tablet, 20 MG PO DAILY, (Reported) Entered as Reported by: THOMAS JORDAN on 06/01/22 145 Vit/Iron Fumarate/FA ( Tablet) 27 Mg Iron-800 Mcg Tablet, 1 EACH PO DAILY, (Reported) Entered as Reported by: THOMAS JORDAN on 06/01/22 1452 OB - History Hx of Present Care: Yes Ultrasounds: Normal mid trimester US Obstetrical Complications: None Medical Complications: None Obstetrical History Hx Complication: Yes (elevated BP's x2 visits) Delivery History Hx Blood Disorders: No Patient Past Medical History n/a Social History/Family History 2nd Hand Smoke Exposure: Yes Immunizations Influenza Vaccine Up-to-Date: Yes; Up-to-Date First/Initial COVID19 Vaccine: DECLINED Hepatitis A: Yes Hepatitis B: Yes Tetanus Booster (TDap): More than 5yrs OB - Admission Exam Physical Exam Vitals: Vital Signs HEENT: NCAT Heart: Rhythm Normal Lungs: Clear Abdomen: Gravid Extremities: Normal Reflexes: Normal Heart Rate: 130's Accelerations: Accelerations Present Decelerations: No Decelerations Short Term Variability: Present Compound Coating Machine Offbearer Variability: Average (6-25) Contractions on Admission: >10 Minutes Apart Labs Laboratory Tests Test 06/28/22 06:05 Range/Units White Blood Count 6.8 4.3-11.0 10^3/uL Red Blood Count 3.56 L 3.80-5.11 10^6/uL Hemoglobin 10.0 L 11.5-16.0 g/dL Hematocrit 30 L 35-52 % Mean Corpuscular Volume 84 80-99 fL Mean Corpuscular Hemoglobin 28 25-34 pg Mean Corpuscular Hemoglobin Concent 33 32-36 g/dL Red Cell Distribution Width 12.9 10.0-14.5 % Platelet Count 129 L 130-400 10^3/uL Mean Platelet Volume 10.9 9.0-12.2 fL Immature Granulocyte % (Auto) 0 % Neutrophils (%) (Auto) 62 42-75 % Lymphocytes (%) (Auto) 27 12-44 % Monocytes (%) (Auto) 10 0-12 % Eosinophils (%) (Auto) 1 0-10 % Basophils (%) (Auto) 0 0-10 % Neutrophils # (Auto) 4.2 1.8-7.8 10^3/uL Lymphocytes # (Auto) 1.8 1.0-4.0 10^3/uL Monocytes # (Auto) 0.7 0.0-1.0 10^3/uL Eosinophils # (Auto) 0.1 0.0-0.3 10^3/uL Basophils # (Auto) 0.0 0.0-0.1 10^3/uL Immature Granulocyte # (Auto) 0.0 0.0-0.1 10^3/uL OB - Assessment/Plan/Diagnosis Assessment Assessment: section Admission Dx 32 y o @ 39 weeks Previous Admission Status: Inpatient Order (span 2 midnights) Reason for Inpatient Admission: Repeat at 39 weeks Plan Plan: Section CORNEL ROPER DO Jun 28, 2022 07:27
[2022-06-28] MEDS ORDERED: TETANUS,DIPTH,PERTUSS P/F (BOOSTRIX) 0.5 ML VIAL IM SCH (07:30)
[2022-06-28] MEDS ORDERED: MEASLES,MUMPS,RUBELLA 1 EA INJ SC SCH (07:30)
[2022-06-28] MEDS ORDERED: ONDANSETRON 4 MG/2 ML (SDV) Z0FRAN IVP PRN (07:30)
[2022-06-28] MEDS ORDERED: NALOXONE 0.4 MG/ML 1 ML (NARCAN) VIAL IV PRN ×2 (07:30→09:00)
--- NOTE | 2022-06-28 07:32 | Discharge Inst-Women's Service ---
Discharge Inst-Women's Serv Depart Medication/Instructions New, Converted or Re-Newed RX: Transmitted to Pharmacy Final Diagnosis POD 2 RLTCS Problems Reviewed?: Yes Consults/Follow Up Additional Follow Up: Yes Orders/Referrals Dr. Beyer i n7-10 days and [facility] in 6 weeks Activity Activity: Activity as Tolerated NO SMOKING: NO SMOKING Nothing Inside Vagina: No Douching, No [place], No Tampons Diet Discharge Diet: No Restrictions Symptoms to Report to : Bleeding Excessive, Pain Increased, Fever Over 101 Degrees F, Vaginal Bleeding Increase, Questions/Concerns For Any Problems or Questions: Contact Your Physician Skin/Wound Care Infection Signs and Symptoms: Increased Redness, Foul Odor of Wound, Increased Drainage, Skin Itchy or Has a Rash, Increased Swelling, Temperature Above 101 F Operative Area Clean and Dry: Keep Incision Clean/Dry Stitches/Kelsie/Dermabond: Dermabond, Care of Stitches Bathing Instructions: CORNEL Haile DO Jun 28, 2022 07:32
[2022-06-28] MEDS ORDERED: IBUP-844 PO (07:33)
[2022-06-28] MEDS ORDERED: ACHD5005 PO (07:33)
[2022-06-28] MEDS ORDERED: DOCU100C37 PO (07:33)
[2022-06-28] MEDS ORDERED: BUPIVACAINE 0.5% 30 ML (SENSORCAINE) VIAL ONE (07:44)
[2022-06-28] MEDS: OXYTOCIN PRE-MIX DRIP 500 ML IV SCH ×2 (07:45→13:41)
[2022-06-28] MEDS: KETOROLAC 30 MG/ML VIAL IV SCH ×3 (08:40→20:04)
[2022-06-28] MEDS ORDERED: ONDANSETRON 4 MG/2 ML (SDV) Z0FRAN IV PRN (09:00)
[2022-06-28] MEDS ORDERED: diphenhydrAMINE 50 MG/ML INJ (BENADRYL) IV PRN (09:00)
[2022-06-28] MEDS: DOCUSATE SODIUM 100 MG (COLACE) CAP PO SCH ×2 (11:09→20:04)
[2022-06-28] MEDS: HYDROcodone/APAP 5 MG/325 MG (LORTAB) TAB PO PRN ×2 (11:09→17:00)
--- NOTE | 2022-06-28 18:16 | OPERATIVE REPORT ---
PREOPERATIVE DIAGNOSES: 1. A 32-year-old at 39 weeks' gestation. 2. Previous section. POSTOPERATIVE DIAGNOSES: 1. A 32-year-old at 39 weeks' gestation. 2. Previous section. PROCEDURE: Repeat low transverse section. SURGEON: Trenton Roper DO HEMP FIBER TAKER OFF: Joy Christopher DNP was necessary for manipulation and retraction throughout the procedure. ANESTHESIA: Spinal. ESTIMATED BLOOD LOSS: 500 mL URINE OUTPUT: 200 mL, clear at the end of the procedure. FLUIDS: 1000 mL lactated Ringer's solution. FINDINGS: Live male infant weighing 8 pounds 1 ounce, Apgars of 8 and 9. Grossly normal appearing uterus, bilateral fallopian tubes and ovaries. SPECIMENS SENT: None. INDICATIONS FOR PROCEDURE: This 32-year-old female who had sought consultation from [facility] for repeat . Her care was uncomplicated except for the need of repeat . Discussed with the patient her and preoperative visit, the risk of the procedure. She was agreeable to proceed. In the preoperative area again, it was reviewed and consent was obtained. After all of her questions were answered, the patient was taken to the operating room. DESCRIPTION IN DETAIL: Once in the Operating Room, spinal analgesia was found to be adequate. She was placed in supine position with a leftward tilt, prepped and draped in normal sterile fashion. A timeout was performed. Anesthesia was tested. I then make a Pfannenstiel skin incision through the previously existing scar using knife and carried down to the underlying fascia using Bovie cautery. The fascial incision extended laterally using Bovie cautery. Superior aspect of the fascial incision was then grasped with Moody clamps and operative dissected off the rectus muscles. The inferior aspect of the fascial incision was then grasped with Moody clamps, tented up and dissected off the rectus muscles. Rectus muscle dissected down the midline sharply, which exposed the peritoneum, which I entered bluntly and extended using blunt traction. Nathaniel ring retractor was placed in the peritoneal incision, which offers excellent lateral sidewall retraction. I identified the lower uterine segment, was found to be thinned out. I made a low transverse incision to the vesicouterine peritoneum and bluntly dissected off the lower uterine segment, creating a bladder flap. I then proceeded with my myotomy until membranes were visualized, at which point I extended the uterine incision laterally and superiorly using bandage scissors. Amniotomy was then performed using Allis clamp. Clear fluid was noted. The infant was found in vertex presentation. With gentle fundal pressure, the 's head was elevated up to the incision where it was delivered through the incision. The nares and oropharynx were bulb suctioned. Anterior and posterior shoulders were delivered. was brought to the operative field where cord was doubly clamped and cut and infant was handed off to waiting nurses in attendance. Cord blood was collected. Three-vessel cord with intact placenta was delivered spontaneously thereafter. IV Pitocin was initiated to facilitate uterine contraction. Uterine fundus was firm with bimanual massage. The uterus was then exteriorized and cleared of all endometrial clots and debris. I then proceeded with closing the uterine incision using 0 Vicryl suture in a running locked fashion. Second layer of imbricating 0 Monocryl was placed. Excellent hemostasis was noted after doing this. I then placed the uterus back in the pelvis and copiously irrigated the pelvis using normal saline. Once again, there was no active bleeding noted from any of my dissection planes. I placed Interceed antiadhesive over my low transverse incision, removed the Nathaniel ring retractor and then proceeded with closing the peritoneum using 3-0 Vicryl suture in a running fashion. The rectus muscles were reapproximated using 3-0 Vicryl suture in interrupted fashion. The fascia was reapproximated using 0 Vicryl suture in a running fashion. Subcutaneous tissue was reapproximated with 3-0 plain in interrupted subcutaneous stitch and the skin was reapproximated using 4-0 Monocryl running subcuticular. Dermabond was applied to incision and sterile dressing with adhesive white tape. The patient tolerated the procedure well and was taken to recovery area in stable condition. Lap and sponge counts were correct at the end of the procedure. Instrument counts correct as well. Two grams of Ancef were given preoperatively for infection prophylaxis. Job ID: [id number] DocumentID: [id number] Dictated Date: 06/28/2022 12:13:33 Biometrics Instructor Date: 06/28/2022 18:09:00 Dictated By: TRENTON ROPER DO
[2022-06-28] MEDS: CATHETER FLUSH 10 ML SYR IV SCH (20:04)
[2022-06-29] MEDS: SIMETHICONE 80 MG (MYLICON) CHEW PO SCH ×4 (00:29→20:28)
[2022-06-29] MEDS: CATHETER FLUSH 10 ML SYR IV SCH (02:36)
[2022-06-29] MEDS: KETOROLAC 30 MG/ML VIAL IV SCH (02:42)
[2022-06-29 02:57] VITALS: BP 107/69
[2022-06-29] MEDS: HYDROcodone/APAP 5 MG/325 MG (LORTAB) TAB PO PRN ×4 (05:05→20:28)
[2022-06-29 05:56] LABS: BASOPHILS % (AUTO) 0 % (0-10); EOSINOPHILS # (AUTO) 0.1 10^3/uL (0.0-0.3); EOSINOPHILS % (AUTO) 1 % (0-10); HEMATOCRIT 25 % (35-52); HEMOGLOBIN 7.8 g/dL (11.5-16.0); LYMPHOCYTES # (AUTO) 1.4 10^3/uL (1.0-4.0); LYMPHOCYTES % (AUTO) 16 % (12-44); MEAN CORPUSCULAR HEMOGLOBIN 27 pg (25-34); MEAN CORPUSCULAR HGB CONC 32 g/dL (32-36); MEAN CORPUSCULAR VOLUME 86 fL (80-99); MEAN PLATELET VOLUME 10.9 fL (9.0-12.2); MONOCYTES # (AUTO) 0.7 10^3/uL (0.0-1.0); MONOCYTES % (AUTO) 8 % (0-12); NEUTROPHILS # (AUTO) 6.4 10^3/uL (1.8-7.8); NEUTROPHILS % (AUTO) 75 % (42-75); PLATELET COUNT 128 10^3/uL (130-400); WHITE BLOOD COUNT 8.5 10^3/uL (4.3-11.0)
[2022-06-29 06:15] VITALS: BP 113/70
[2022-06-29 07:40] VITALS: BP 97/61
[2022-06-29] MEDS: IBUPROFEN 600 MG (MOTRIN) TAB PO SCH ×3 (08:44→20:28)
[2022-06-29] MEDS: DOCUSATE SODIUM 100 MG (COLACE) CAP PO SCH ×2 (08:44→20:28)
--- NOTE | 2022-06-29 09:50 | Anesthesia-Regional Post-Op ---
Regional Patient Condition Mental Status: Alert, Oriented x3 Circulation: Same as Pre-Op Headache: Absent Sensation: Full Recovery Motor Block: Absent Post Op Complications Complications None Follow Up Care/Instructions Patient Instructions None needed. Anesthesia/Patient Condition Patient is doing well, no complaints, stable vital signs, no apparent adverse anesthesia problems. No complications reported per nursing. IVAN SNOW CRNA Jun 29, 2022 09:50
--- NOTE | 2022-06-29 10:10 | Postpartum Progress Note ---
Note Note Day # 1 Subjective: Patient is without complaints. Ambulating, voiding. Tolerating a regular diet without nausea or vomiting. Normal lochia. Pain is well controlled with oral pain medications. Physical Exam: General - Alert and oriented, no apparent distress Abdomen - Soft, appropriately tender to palpation, non-distended, fundus firm at umbilicus; incision c/d/i Extremities - no edema, negative Bogdan's bilaterally Assessment: Post- day # 1, status post RLTCS Recovering well, hemodynamically stable Acute blood loss anemia Plan: Routine care. Encourage breast feeding. Encourage ambulation. Ferrous sulfate supplementation. Plan for discharge tomorrow Vitals - Labs Vital Signs - I&O Vital Signs Date Time Temp Pulse Resp B/P (MAP) Pulse Ox O2 Delivery O2 Flow Rate FiO2 06/29/22 07:40 36.6 88 18 97/61 (73) 99 Room Air 06/29/22 06:15 90 18 113/70 (84) 100 Room Air 06/29/22 02:57 37.0 80 22 107/69 (82) 98 Room Air 06/28/22 23:55 36.7 84 20 117/67 (84) 100 Room Air 06/28/22 20:01 36.9 78 20 123/59 (80) 98 Room Air 06/28/22 15:00 36.8 82 14 104/68 (80) 97 Room Air 06/28/22 11:24 99 Room Air 06/28/22 11:07 37.1 81 18 103/67 (79) 99 Room Air 06/28/22 10:13 36.9 76 18 99/64 (76) 99 Room Air I & O 06/29/22 07:00 Intake Total 1370 ml Output Total 2100 ml Balance -730 ml Labs Laboratory Tests 06/29/22 04:52: White Blood Count 8.5, Red Blood Count 2.85L, Hemoglobin 7.8#L, Hematocrit 25L, Mean Corpuscular Volume 86, Mean Corpuscular Hemoglobin 27, Mean Corpuscular Hemoglobin Concent 32, Red Cell Distribution Width 12.9, Platelet Count 128L, Mean Platelet Volume 10.9, Immature Granulocyte % (Auto) 1, Neutrophils (%) (Auto) 75, Lymphocytes (%) (Auto) 16, Monocytes (%) (Auto) 8, Eosinophils (%) (Auto) 1, Basophils (%) (Auto) 0, Neutrophils # (Auto) 6.4, Lymphocytes # (Auto) 1.4, Monocytes # (Auto) 0.7, Eosinophils # (Auto) 0.1, Basophils # (Auto) 0.0, Immature Granulocyte # (Auto) 0.0 Microbiology 06/28/22 MRSA Screen - Final, Complete MRSA not isolated LOUISA HAMILTON APRN Jun 29, 2022 10:10
[2022-06-29 15:47] VITALS: BP 101/67
[2022-06-29] MEDS ORDERED: polyethylene glycoL POWDER 17 GM (MIRALAX) PACK PO PRN (16:00)
[2022-06-29 20:30] VITALS: BP 113/68
[2022-06-30 02:00] VITALS: BP 120/59
[2022-06-30] MEDS: IBUPROFEN 600 MG (MOTRIN) TAB PO SCH ×2 (02:09→08:22)
[2022-06-30] MEDS: SIMETHICONE 80 MG (MYLICON) CHEW PO SCH ×2 (02:25→08:22)
[2022-06-30] MEDS: HYDROcodone/APAP 5 MG/325 MG (LORTAB) TAB PO PRN (03:42)
[2022-06-30 08:18] VITALS: BP 120/61
[2022-06-30] MEDS: DOCUSATE SODIUM 100 MG (COLACE) CAP PO SCH (08:22)
--- NOTE | 2022-06-30 09:43 | Short Stay Summary ---
Discharge Summary Hospital Course Was the Problem List Reviewed?: Yes Final Diagnosis: Term Repeat Hospital Course Date of Admission: Jun 28, 2022 at 05:39 Admission Diagnosis : Family Physician/Provider: Alondra Levin MD Date of Discharge: 06/30/22 Discharge Diagnosis: [ ] Hospital Course: [ ] Labs and Pending Lab Test: Microbiology 06/28/22 MRSA Screen - Final, Complete MRSA not isolated Home Meds Active Docusate Sodium 100 Mg Capsule 100 Mg PO BID PRN HYDROcodone/APAP 5 MG/325 MG TAB (Acetaminophen/Hydrocodone Bitart) 1 Tab Tab 1-2 Ea PO Q6HR PRN Ibu (Ibuprofen) 600 Mg Tablet 600 Mg PO Q6H Reported Unisom Sleep Aid (Doxylamine Succinate) 25 Mg Tablet 25 Mg PO HS Tablet ( Vit/Iron Fumarate/FA) 27 Mg Iron-800 Mcg Tablet 1 Each PO DAILY Tums (Calcium Carbonate) 200 Mg Calcium (500 Mg) Tab.chew 200 Mg PO TID PRN Pepcid (Famotidine) 20 Mg Tablet 20 Mg PO DAILY Assessment/Pt Instructions Ready for Discharge Discharge Instructions Discharge Diet: No Restrictions Discharge Physical Examination General Appearance: Alert, Oriented X3, Cooperative, No Acute Distress HEENT: Atraumatic, PERRLA, EOMI Respiratory: Normal Air Movement Cardiovascular: Regular Rate Abdominal: Soft, No Tenderness, Other (Incision C&D) Extremities: No Edema Neuro: Normal Speech Allergies: Coded Allergies: No Known Drug Allergies (Verified , 06/21/22) Discharge Summary Date of Admission Jun 28, 2022 at 05:39 Date of Discharge Discharge Date: Jun 30, 2022 Admission Diagnosis Term Repeat Consults/Procedures Procedures Repeat LTCS Discharge Diagnosis Repeat C/S [place] PRESLEY SMITH III, DO Jun 30, 2022 09:43
[2022-06-30 13:20] VITALS: BP 120/61
== END 2022-06-30 13:20 | disposition home or self-care (01) | DRG 787 ==
LOC: LDRP 05:39 → WS 10:12
PROVIDERS: ADMIT Obstetrics & Gynecology; ATTEND Obstetrics & Gynecology
PROC: 10D00Z1 Extraction of Products of Conception, Low, Open Approach (ICD-10-PCS; principal; 2022-06-28 07:18)
DX: O34.211 Maternal care for low transverse scar from previous cesarean delivery (principal); D62 Acute posthemorrhagic anemia; O90.81 Anemia of the puerperium; Z3A.39 39 weeks gestation of pregnancy; Z37.0 Single live birth; Z28.310 Unvaccinated for COVID-19
CPT/HCPCS: 36415; 85025; 86850; 86900; 86901; 87081